=== PATIENT | male | born 1970 | race African-American/Black ===

== ENCOUNTER 2019-12-06 12:06 | IRF | payer MEDICARE, MEDICAID, SELFPAY ==
--- NOTE | ~2019-12-06 | XR_ITS ---
EXAMINATION: XR chest 1V portable EXAM DATE: 12/23/2019 18:42 INDICATION: Lightheadedness, dizziness. TECHNIQUE: Portable AP frontal chest x-ray was obtained. There is no prior study for comparison. FINDINGS: The lungs are clear. There are no pleural effusions. Cardiac silhouette is prominent but magnified on this AP technique. There is no pneumothorax suspected. The bones and soft tissues are unremarkable. IMPRESSION: No acute cardiopulmonary findings. Reviewed, dictated and finalized at location A.
--- NOTE | ~2019-12-06 | NM_ITS ---
EXAMINATION: NM pulmonary perfusion DATE: 12/24/2019 12:07 INDICATION: Shortness of breath. TECHNIQUE: 4.4 mCi Tc-99m MAA was administered intravenously for perfusion images. Scintigraphic sebastian ges of the chest were obtained. COMPARISON: Chest single view 12/23/2019 FINDINGS: Perfusion images show no defects. ] IMPRESSION: 1. Normal lung perfusion. Reviewed, dictated and finalized at location A. IMPRESSION: 1. Normal lung perfusion.
--- NOTE | 2019-12-06 12:25 | PC.NURSE ---
This patient, Issac Perea, was admitted to [facility] Room 220-01. Patient/family oriented to hospital policies and general routines including ID bracelet, bed and alarms, visiting hours, pain management, procedures, bathroom and other care routines, personal items, smoking policy, room service/diet, and visiting hours. Valuables list has been completed. Information on how to activate the Rapid Response Team has been discussed. Patient/Family are encouraged to report perceived risks to care and to ask questions if they do not understand what they are told or what they should do.
[2019-12-06 12:30] VITALS: BP 131/52; PULSE 63; RESP 17; TEMP 36.4; O2SAT 97; BMI 35.2
[2019-12-06 16:14] VITALS: BMI 35.2
[2019-12-06 17:34] LABS: Glucose Point of Care 216 (65-105)
[2019-12-06] MEDS: INSULIN ASPART (*BKC) 100 UNITS/ML SUB-Q (17:51)
[2019-12-06 17:54] VITALS: PULSE 63
[2019-12-06] MEDS: carvediloL 12.5 MG TABLET PO (17:54)
[2019-12-06] MEDS: SEVELAMER CARBONATE 800 MG TABLET PO (17:55)
[2019-12-06] MEDS: hydrALAZINE HCL 25 MG TABLET PO ×2 (17:56→21:24)
[2019-12-06] MEDS: TRAZODONE HCL 50 MG TABLET PO (21:24)
[2019-12-06] MEDS: INSULIN GLARGINE (*BKC) 100 UNITS/ML 20 UNITS SUB-Q (21:24)
[2019-12-06 21:45] LABS: Glucose Point of Care 207 (65-105)
[2019-12-06 21:50] VITALS: BP 119/63; PULSE 72; RESP 16; TEMP 36.7; O2SAT 95
[2019-12-07] VITALS (25 sets, daily range): BP systolic 123–158; BP diastolic 52–70; PULSE 59–69; RESP 16–18; TEMP 36.3–37; O2SAT 96–98
[2019-12-07] MEDS: TRAMADOL HCL 50 MG TABLET PO (04:31)
[2019-12-07 04:34] LABS: Basophils Absolute Auto 0.1 K/mm3 (0.0-0.1); Basophils Percent Auto 0.6 % (0.2-1.2); Eosinophils Absolute Auto 0.1 K/mm3 (0-0.3); Eosinophils Percent Auto 1.2 % (0-4.4); Hematocrit 25.5 % (42.0-52.0); Hemoglobin 7.7 g/dL (14.0-18.0); Immature Granulocyte Absolute 0.04 K/mm3 (0.00-0.031); Immature Granulocyte Percent A 0.4 % (0-0.5); Lymphocytes Absolute Auto 1.21 K/mm3 (0.9-3.2); Lymphocytes Percent Auto 13.4 % (18.3-44.2); Mean Corpuscular HGB Conc 30.2 g/dl (32-36); Mean Corpuscular Hemoglobin 26.5 pg (26-34); Mean Corpuscular Volume 87.6 fl (80-100); Mean Platelet Volume 8.4 fl (7.4-10.4); Monocytes Absolute Auto 0.9 K/mm3 (0.1-0.6); Monocytes Percent Auto 9.9 % (2.6-8.5); Neutrophils Absolute Auto 6.7 K/mm3 (1.3-6.7); Neutrophils Percent Auto 74.5 % (45.5-73.1); Platelet Count Result 425 k/mm3 (150-375); Red Blood Count 2.91 M/mm3 (4.6-6.20); Red Cell Distribution Width 16.4 % (11.5-14.5); White Blood Count 9.1 K/mm3 (4.5-10.0)
[2019-12-07 04:44] LABS: Hemoglobin A1C 9.7 % (<5.7)
[2019-12-07 04:51] LABS: Blood Urea Nitrogen 27 mg/dL (9-20); Calcium 8.2 mg/dL (8.4-10.2); Carbon Dioxide 30 mmol/L (22-30); Chloride 93 mmol/L (98-107); Estimated CRCL calculation 15 ml/min; Estimated Glomerular Filt Rate 11; Glucose 159 mg/dL (75-110); Potassium 4.8 mmol/L (3.4-5.0); Sodium 130 mmol/L (137-145)
[2019-12-07] MEDS: hydrALAZINE HCL 25 MG TABLET PO ×3 (05:45→20:12)
[2019-12-07 06:49] LABS: Glucose Point of Care 151 (65-105)
[2019-12-07] MEDS: ATORVASTATIN 40 MG TABLET PO (10:34)
[2019-12-07] MEDS: DULOXETINE HCL 30 MG CAPSULE.DR PO (10:34)
[2019-12-07] MEDS: AMLODIPINE BESYLATE 5 MG TABLET 10 MG PO (10:35)
[2019-12-07] MEDS: MULTIVITAMINS /C LUTEIN (CENTRUM SILVER) TABLET *BKC 1 TAB PO (10:35)
[2019-12-07] MEDS: SEVELAMER CARBONATE 800 MG TABLET PO ×3 (10:35→20:11)
[2019-12-07] MEDS: carvediloL 12.5 MG TABLET PO ×2 (10:35→20:11)
[2019-12-07] MEDS: ASPIRIN 81 MG ENTERIC TABLET PO (10:35)
[2019-12-07] MEDS: INSULIN ASPART (*BKC) 100 UNITS/ML SUB-Q ×2 (10:36→12:19)
[2019-12-07] MEDS: FLUTICASONE PROPIONATE 0.05% NA SPR 16 GM BTL (*BKC) 2 SPRAY NASAL (10:36)
--- NOTE | 2019-12-07 10:44 | PM.CNNEP ---
Assessment and Plan Assessment and plan (1) End stage renal disease: Code(s): N18.6 - End stage renal disease Status: Acute Assessment and Plan: The patient has end-stage renal disease. He has been on dialysis for a year and a half. He never had a transplant. He has never been on peritoneal dialysis. His dialysis has been going pretty smoothly. He generally has about 2L on. He has been eating well. We will dialyze him today. I will take 2L off. We will use a 3K bath. (2) Hypertension: Code(s): I10 - Essential (primary) hypertension Status: Acute Assessment and Plan: Blood pressure is under good control. He is on amlodipine carvedilol and clonidine. (3) Renal osteodystrophy: Code(s): N25.0 - Renal osteodystrophy Status: Acute Assessment and Plan: We will check a phosphorus level next week he is on sevelamer now Since he is on hospital food he may not need the binder but we will assess this going forward (4) Erythropoietin deficiency anemia: Code(s): D63.1 - Anemia in chronic kidney disease Status: Acute Assessment and Plan: The patient has a hemoglobin of only 7.7. This is partially due to chronic kidney disease but also due to inflammation from his infection and also possibly blood loss from surgery. He is no longer on antibiotics. We will check iron levels to see where we are with that. (5) History of left below knee amputation: Code(s): Z89.512 - Acquired absence of left leg below knee Status: Acute Assessment and Plan: The patient had a ckrfe-fke-anrg amputation recently. He is getting local wound care. History of Present Illness Reason for Consult Consult date: 12/07/19 Reason for consult: end stage renal disease Chief Complaint Chief complaint: Left BKA History of Present Illness Narrative: Issac is a very pleasant 49-year-old gentleman who has multiple medical problems including end-stage renal disease, diabetes, hypertension, peripheral vascular disease, status post left drwmr-lxh-lqhi amputation due to a foot ulcer, anemia of chronic kidney disease, renal osteodystrophy, hyperlipidemia, history of a TIA. The patient has trouble started with a foot ulcer on the left foot. This is managed with local wound management and antibiotics. Unfortunately it progressed over the next 2 weeks and eventually ended up needing an above the knee amputation. The wound dehisced and so he has a wound VAC. He was transferred to rehab for strengthening, wound care, dialysis. The patient feels okay today. He has been eating okay. He feels like he has about 2L on. No chest pain or shortness of breath. A little bit of swelling. No skin rash. The patient has diabetes. He has had this for about 20 years. He does have eye disease from this, he has had bleeding in his eyes.. His sugars have been fairly well controlled. The patient has hypertension. He has had this for about 15 years. He has never had a stroke or heart attack but did have a TIA. 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 He does not know the etiology. Past history as above Social history he does not smoke and never did. He does not drink alcohol. Allergies: Vancomycin. Review of Systems Constitutional: Constitutional: Reports no additional constitutional complaints Eyes: Eyes: Reports no additional eye complaints ENT: Reports system reviewed and no additional complaints, except as documented Cardiovascular: Cardiovascular: Reports no additional cardiovascular complaints Respiratory: Respiratory: Reports no additional respiratory complaints Gastrointestinal: Gastrointestinal: Reports no additional gastrointestinal complaints Genitourinary: Genitourinary: Reports no additional male genitourinary complaints Musculoskeletal: Musculoskeletal: Reports no additional musculoskeletal complaints Integu
[2019-12-07 11:21] LABS: Immature Reticulocyte Fraction 22.1 % (3.0-15.9); Reticulocyte Hemoglobin Conten 23.2 pg (28.2-35.7); Reticulocyte Percent 1.75 % (0.7-4.3); Reticulocytes Absolute 0.05 B/L (32.2-175.7)
[2019-12-07 12:03] LABS: Glucose Point of Care 104 (65-105)
[2019-12-07 13:12] LABS: Iron 42 ug/dL (49-181)
[2019-12-07 13:21] LABS: Percent Iron Saturation 29 % (20-50)
--- NOTE | 2019-12-07 14:09 | REHAB_ITS ---
DATE OF SERVICE: 12/06/2019 PATIENT'S PRIMARY REHAB IMPAIRMENT CATEGORY: Amputation of lower extremity with etiological diagnosis of severe peripheral vascular disease with osteomyelitis. He was seen [id number] on 12/08/2019 at 11:00 a.m. HISTORY OF PRESENT ILLNESS: A 49-year-old right-handed male with ongoing history of: 1. Diabetes mellitus. 2. Peripheral vascular disease. 3. Hypertension. 4. End-stage renal disease for which he is on hemodialysis. Presented to Dr. Bright office on 11/25/2019 for further evaluation of circulation problem and extent of infection to receive the further IV antibiotics. His foot ulcer was being treated with oral antibiotic, but ulceration was rapidly deteriorating and he was developing gangrenous tissue. Dr. Bright performed a debridement in the office and recommended the patient to go to the emergency room where radiological investigation documented osteomyelitis of the base of the left fifth metatarsal bone for which he was placed on cefepime and clindamycin. CTA revealed aorta with bilateral iliofemoral runoff. He had previous amputation of all the toes on the left foot in 2011, and second and third toe of the right foot in 2012. Several physicians were consulted including Infectious Disease, Podiatry, Nephrology, Cardiology. Infectious Disease personnel changed the antibiotic to ceftaroline and added metronidazole. Groover Runner recommended peripheral vascular consultation for staging of the amputation as well as I and D with the recommendation made for General Surgery for possible distal below-knee amputation. Wet-to-dry Betadine dressings were initiated. Nephrologists were consulted for the patient was on hemodialysis on Monday, , and Monday, and was managing hemodialysis care. Cardiologists were also consulted for peripheral angiography to attempt to restore better blood flow to the left foot. Angioplasty was performed on 11/27/2019, but on 11/28/2019, cosmetic sales performed an I and D of the left foot. At the end of the procedure, Dr. Batista determined that it was highly unlikely healing would occur, so he packed the area and contacted Dr. Josue to schedule a below-knee amputation. the general surgeon agreed with and scheduled the patient for left below-knee amputation. On 11/14/2019, the patient underwent the procedure with wound VAC placement. Postoperatively, he developed severe pain, became anemic requiring transfusion, also developed hypertension, hyperglycemia, hyperkalemia, and hyponatremia. He was nonweightbearing to left lower extremity, had a Prevena wound VAC to the left lower extremity to be removed on 12/09/2019, and is to follow up in 3 weeks for staple removal. If stump is healed at that time, they will arrange for prosthetics consultation and stump waitstaff captain. On 12/02/2019, he underwent a CT angiogram and stent placement in his left popliteal artery with Dr. Sorto and the patient was to continue on aspirin. He will require 5-7 days of oral antibiotics. He will not be placed on subcutaneous anticoagulation. He has a followup appointment scheduled with Dr. Sorto on 12/31/2019 at a.m. The patient has not traveled outside the [place] or had contact with someone who was ill that has traveled outside the [place] in the past 21 days. The patient has not traveled to an area of the [place] that is experiencing known transmission of the [place] virus and has not had close personal contact with anyone that has. The patient does not have a fever and is not experiencing any lower respiratory illness symptoms. Therapy was initiated at the Acute Care Facility and patient was transferred to us from [facility] on 12/05/2019. SURGERY OR FALLS: The patient has had major surgery in the last 100 days prior to admission as mentioned above. He has
[2019-12-07] MEDS: HEPARIN SODIUM 1,000 UNITS/ML VIAL 1000 UNITS IV PUSH (15:21)
[2019-12-07] MEDS: HEPARIN SODIUM 1,000 UNITS/ML VIAL 500 UNITS IV PUSH ×2 (15:24→16:24)
[2019-12-07] MEDS: EPOETIN ALFA 10,000 UNITS/ML VIAL 10000 UNITS IV PUSH (17:05)
[2019-12-07] MEDS: TRAZODONE HCL 50 MG TABLET PO (20:12)
[2019-12-07] MEDS: INSULIN GLARGINE (*BKC) 100 UNITS/ML 20 UNITS SUB-Q (20:14)
[2019-12-07 21:04] LABS: Glucose Point of Care 101 (65-105)
[2019-12-08 05:10] VITALS: BP 142/55; PULSE 70; RESP 18; TEMP 37.2; O2SAT 99
[2019-12-08] MEDS: hydrALAZINE HCL 25 MG TABLET PO ×3 (05:21→20:43)
[2019-12-08 06:55] LABS: Glucose Point of Care 162 (65-105)
[2019-12-08 08:00] VITALS: PULSE 70; RESP 18; O2SAT 99
[2019-12-08 09:16] VITALS: PULSE 70
[2019-12-08] MEDS: ATORVASTATIN 40 MG TABLET PO (09:16)
[2019-12-08] MEDS: carvediloL 12.5 MG TABLET PO ×2 (09:16→17:28)
[2019-12-08] MEDS: AMLODIPINE BESYLATE 5 MG TABLET 10 MG PO (09:16)
[2019-12-08] MEDS: DULOXETINE HCL 30 MG CAPSULE.DR PO (09:17)
[2019-12-08] MEDS: SEVELAMER CARBONATE 800 MG TABLET PO ×3 (09:17→17:28)
[2019-12-08] MEDS: MULTIVITAMINS /C LUTEIN (CENTRUM SILVER) TABLET *BKC 1 TAB PO (09:17)
[2019-12-08] MEDS: ASPIRIN 81 MG ENTERIC TABLET PO (09:17)
[2019-12-08] MEDS: INSULIN ASPART (*BKC) 100 UNITS/ML SUB-Q ×3 (09:22→17:28)
--- NOTE | 2019-12-08 10:13 | WPDNEURORHBP ---
Subjective Date/time seen: 12/08/19 10:13 S/P LBKA with severe peripheral vascular disease,DM and ESRD Exam Const: General: cooperative, comfortable and no acute distress Nutritional Appearance: average body habitus Orientation/consciousness: patient oriented x3 Eyes: General: appearance normal, both eyes and all related structures Neck: Neck: full ROM Resp: Auscultation: clear to auscultation bilaterally Cardio: Rate: regular rate GI: Auscultation: normal bowel sounds Skin: General skin exam: no rashes or lesions noted Neuro: General: patient oriented x3 and moves all extremities Cranial nerves: Yes CN's II-XII intact bilaterally, Yes Equal, round and reactive pupils present, Yes Nystagmus not present, Yes Normal facial strength present, Yes Midline tongue present, Yes Symmetric palate elevation present and Yes Ability to bilaterally rotate head present Cognition (Neuro): normal cognition Speech: normal speech Gait exam (Neuro): Unable to assess gait Deep tendon reflexes (DTR's): Right triceps reflex intensity grade: 1+, Left triceps reflex intensity grade: 1+, Rt Biceps (C5, C6): 1+, Left biceps reflex intensity grade: 1+, Right brachioradialis reflex intensity grade: 1+, Left brachioradialis reflex intensity grade: 1+, Right patellar reflex intensity grade: 1+ and Right ankle reflex intensity grade: 0 Plantar Reflex Responses: downgoing: right Psych: Appearance: grossly normal Speech and movement: Normal speech and movement present Affect: normal affect Attitude: cooperative Thought process: Normal thought process present Thought content: Yes Normal thought content present Insight: Good insight present (Psych) Judgement: Good judgement present (Psych) Objective Data Vital Signs Vital Signs: Vital Signs - 24 hr 12/07/19 10:35 12/07/19 14:00 12/07/19 15:00 Temperature 36.6 C Pulse Rate 65 69 60 Respiratory Rate 18 Blood Pressure 130/52 L 136/66 Pulse Oximetry 96 12/07/19 15:10 12/07/19 15:24 12/07/19 15:45 Temperature 36.3 C L Pulse Rate 61 59 L 60 Respiratory Rate 16 Blood Pressure 134/68 126/64 133/63 Pulse Oximetry 12/07/19 16:00 12/07/19 16:15 12/07/19 16:30 Temperature Pulse Rate 60 63 60 Respiratory Rate Blood Pressure 132/70 135/62 123/62 Pulse Oximetry 12/07/19 16:45 12/07/19 17:00 12/07/19 17:15 Temperature Pulse Rate 63 64 64 Respiratory Rate Blood Pressure 138/68 137/65 140/65 Pulse Oximetry 12/07/19 17:30 12/07/19 17:45 12/07/19 18:00 Temperature Pulse Rate 64 65 65 Respiratory Rate Blood Pressure 142/64 H 148/68 H 148/68 H Pulse Oximetry 12/07/19 18:15 12/07/19 18:30 12/07/19 18:45 Temperature Pulse Rate 64 67 66 Respiratory Rate Blood Pressure 138/66 144/64 H 139/64 Pulse Oximetry 12/07/19 18:57 12/07/19 19:16 12/07/19 20:11 Temperature 36.4 C Pulse Rate 65 66 66 Respiratory Rate 16 Blood Pressure 147/67 H 147/65 H Pulse Oximetry 12/07/19 20:20 12/08/19 05:10 12/08/19 09:16 Temperature 36.6 C 37.2 C Pulse Rate 61 70 70 Respiratory Rate 18 18 Blood Pressure 158/57 H 142/55 H Pulse Oximetry 98 99 Intake/Output Intake/Output: Intake & Output 12/05/19 12/06/19 12/07/19 12/08/19 23:59 23:59 23:59 23:59 Intake Total 480 600 Output Total 2000 Balance 480 -1400 Meds/Results Medications: Active Medications Generic Name Dose Route Start Last Admin Trade Name Keithq PRN Reason Stop Dose Admin Amlodipine Besylate 10 mg 12/07/19 09:00 12/08/19 09:16 Norvasc PO 10 mg DAILY ESTEFANY Administration Aspirin 81 mg 12/07/19 09:00 12/08/19 09:17 Aspirin Ec PO 81 mg DAILY ESTEFANY Administration Atorvastatin Calcium 40 mg 12/07/19 09:00 12/08/19 09:16 Lipitor PO 40 mg DAILY ESTEFANY Administration Carvedilol 12.5 mg 12/06/19 17:00 12/08/19 09:16 Coreg PO 12.5 mg BID ESTEFANY Administration Clonidine HCl 1 patch 12/09/19 09:00 Catapres-
[2019-12-08 11:57] LABS: Glucose Point of Care 123 (65-105)
[2019-12-08 14:00] VITALS: BP 130/58; PULSE 70; RESP 20; TEMP 36.5; O2SAT 97
[2019-12-08 16:58] LABS: Glucose Point of Care 170 (65-105)
[2019-12-08 17:28] VITALS: PULSE 70
--- NOTE | 2019-12-08 19:16 | PC.NURSE ---
DIALYSIS SHUNT IN LEFT FOREARM, USED FOR DIALYSIS. NO PROBLEMS REPORTED FROM DIALYSIS NURSE.
[2019-12-08 20:33] LABS: Glucose Point of Care 230 (65-105)
[2019-12-08] MEDS: INSULIN GLARGINE (*BKC) 100 UNITS/ML 20 UNITS SUB-Q (20:36)
[2019-12-08] MEDS: TRAZODONE HCL 50 MG TABLET PO (20:46)
[2019-12-08 22:00] VITALS: BP 172/60; PULSE 72; RESP 18; TEMP 36.8; O2SAT 97
[2019-12-09] MEDS: TRAMADOL HCL 50 MG TABLET 100 MG PO (03:52)
[2019-12-09 05:26] LABS: Albumin Level 3.2 g/dL (3.5-5.1); Blood Urea Nitrogen 30 mg/dL (9-20); Calcium 8.2 mg/dL (8.4-10.2); Carbon Dioxide 27 mmol/L (22-30); Chloride 95 mmol/L (98-107); Estimated CRCL calculation 16 ml/min; Estimated Glomerular Filt Rate 12; Glucose 183 mg/dL (75-110); Phosphorus 3.6 mg/dL (2.5-4.5); Potassium 5.2 mmol/L (3.4-5.0); Sodium 130 mmol/L (137-145)
[2019-12-09] MEDS: hydrALAZINE HCL 25 MG TABLET PO ×3 (05:51→20:41)
[2019-12-09 06:00] VITALS: BP 148/60; PULSE 63; RESP 18; TEMP 36.4; O2SAT 99
[2019-12-09 07:02] LABS: Glucose Point of Care 165 (65-105)
[2019-12-09] MEDS: AMLODIPINE BESYLATE 5 MG TABLET 10 MG PO (09:41)
[2019-12-09 09:42] VITALS: PULSE 63
[2019-12-09] MEDS: SEVELAMER CARBONATE 800 MG TABLET PO ×3 (09:42→17:45)
[2019-12-09] MEDS: carvediloL 12.5 MG TABLET PO ×2 (09:42→17:45)
[2019-12-09] MEDS: ATORVASTATIN 40 MG TABLET PO (09:42)
[2019-12-09] MEDS: ASPIRIN 81 MG ENTERIC TABLET PO (09:42)
[2019-12-09] MEDS: FLUTICASONE PROPIONATE 0.05% NA SPR 16 GM BTL (*BKC) 2 SPRAY NASAL (09:44)
[2019-12-09] MEDS: DULOXETINE HCL 30 MG CAPSULE.DR PO (09:44)
[2019-12-09] MEDS: MULTIVITAMINS /C LUTEIN (CENTRUM SILVER) TABLET *BKC 1 TAB PO (09:45)
[2019-12-09] MEDS: INSULIN ASPART (*BKC) 100 UNITS/ML SUB-Q ×3 (09:46→17:48)
[2019-12-09 11:54] VITALS: BMI 35.6
[2019-12-09 11:56] LABS: Glucose Point of Care 108 (65-105)
--- NOTE | 2019-12-09 13:23 | RPD ---
INDIVIDUALIZED PLAN OF CARE FOR Issac Perea Brief Synthesis of Pre-Admission Screen, Post-Admission Evaluation and Therapy Evaluations: The patient presents to rehab with severe peripheral vascular disease with osteomyelitis. Comorbidities include hypertension, acute postoperative pain, acute blood loss anemia requiring transfusion, hyponatremia, hyperkalemia, end-stage renal disease on hemodialysis, peripheral vascular disease, diabetes mellitus with hyperglycemia. The patient requires physician services for medical oversight, management of post-op complications in the setting of present comorbidities, management of diabetes mellitus diagnosis, and pain management. Post-op complications have included acute blood loss anemia requiring transfusion, uncontrolled hypertension, hyperkalemia, hyponatremia, and hyperglycemia. The patient requires nursing services for anticoagulation therapy, diabetes training, DVT prophylactics, infection protection, medication management and education, pressure relief, wound vac management, and wound care Deficits include:ADLs, Balance, Endurance, Family Training/Education, Mobility, Pain Management, ROM, Safety, Strength,Transfers Court Messenger/Case Management for: Discharge Planning and Patient/Family Counseling Physical Therapy: 5 days per week for 90 minutes. Treatments may include: Therapeutic Exercise, Gait Training, Neuromuscular Re-education, Transfer Training, Community Reintegration, Bed Mobility, Patient/Family Education, Wheelchair Mobility Group Therapy/Concurrent Therapy Rationales: -Improve attention span during functional activities in a distracted environment. -Enhance problem solving and/or adequate judgment skills during functional activities in a distracted environment. -Promote increased safety awareness in a distracted environment to reduce fall risk with functional tasks, transfers, and ambulation to allow a more safe, self-sufficient return to the home environment. -Improve dynamic balance skills to promote safety and independence with functional activities in a distracted environment for maximum gain. Occupational Therapy: 5 days per week for 90 minutes. Treatments may include: Therapeutic Exercise, Therapeutic Activity, Cognitive Training, Self-Care Transfer Training, Community Reintegration, Home Management, Patient/Family Education, Wheelchair Mobility Training, Energy Conservation Training Group Therapy/Concurrent Therapy Rationales: -Allow therapist to observe and teach generalization and carry-over of skills learned in individual therapy. -Enhance problem solving and sequencing skills during therapeutic activities in a distracted environment. -Promote increased safety awareness in a realistic setting to reduce fall risk with functional tasks due to visual and verbal distractions. -Increase functional level with ADLs, ADL transfers and use of adaptive equipment through therapeutic activities with others while promoting safety to allow a more safe, self-sufficient return home. Medical Prognosis: Good Anticipated Length of Stay: 12 days Rehab Goals: Eating Goal: 06-Independent Oral Hygiene Goal: 06-Independent Toileting Hygiene Goal: 03-Partial/Moderate Assistance Shower/Bathe Self Goal: 05-Setup or Clean Up Assistance Upper Body Dressing Goal: 05-Setup or Clean Up Assistance Lower Body Dressing Goal: 03-Partial/Moderate Assistance Putting On/Taking Off Footwear Goal: 06-Independent Rolling Left and Right Goal: 06-Independent Sit to Lying Goal: 06-Independent Lying to Sitting on Side of Bed Goal: 06-Independent Sit to Stand Goal: 04-Supervision or Touching Assistance Chair/Jmi-vw-Thyhu Transfer Goal: 06-Independent Toilet Transfer Goal: 03-Partial/Moderate Assistance Car Transfer Goal: 03-Partial/Moderate Assistance Walk 10' Goal: 03-Partial/Moderate Assistance Walk 50' with Two Turns Goal: 88-Not Attempted Due to Medical Condition/Safety Concerns Walk 150' Goal: 88-Not Attempted Due to
[2019-12-09 14:00] VITALS: BP 134/52; PULSE 63; RESP 18; TEMP 36.2; O2SAT 99
[2019-12-09 17:06] LABS: Glucose Point of Care 121 (65-105)
[2019-12-09 17:45] VITALS: PULSE 63
[2019-12-09 20:00] VITALS: PULSE 66; RESP 16; O2SAT 95
[2019-12-09] MEDS: INSULIN GLARGINE (*BKC) 100 UNITS/ML 20 UNITS SUB-Q (20:37)
[2019-12-09] MEDS: TRAZODONE HCL 50 MG TABLET PO (20:41)
[2019-12-09 20:59] LABS: Glucose Point of Care 133 (65-105)
[2019-12-09 22:00] VITALS: BP 138/58; PULSE 66; RESP 16; TEMP 36.3; O2SAT 95
[2019-12-10] VITALS (22 sets, daily range): BP systolic 125–198; BP diastolic 55–69; PULSE 64–75; RESP 16–20; TEMP 35.8–37; O2SAT 95–99
[2019-12-10] MEDS: hydrALAZINE HCL 25 MG TABLET PO ×3 (05:54→21:22)
[2019-12-10 07:00] LABS: Glucose Point of Care 120 (65-105)
[2019-12-10] MEDS: AMLODIPINE BESYLATE 5 MG TABLET 10 MG PO (08:24)
[2019-12-10] MEDS: SEVELAMER CARBONATE 800 MG TABLET PO ×3 (08:24→21:22)
[2019-12-10] MEDS: FLUTICASONE PROPIONATE 0.05% NA SPR 16 GM BTL (*BKC) 2 SPRAY NASAL (08:25)
[2019-12-10] MEDS: carvediloL 12.5 MG TABLET PO ×2 (08:25→21:22)
[2019-12-10] MEDS: ASPIRIN 81 MG ENTERIC TABLET PO (08:25)
[2019-12-10] MEDS: DULOXETINE HCL 30 MG CAPSULE.DR PO (08:25)
[2019-12-10] MEDS: ATORVASTATIN 40 MG TABLET PO (08:25)
[2019-12-10] MEDS: MULTIVITAMINS /C LUTEIN (CENTRUM SILVER) TABLET *BKC 1 TAB PO (08:25)
[2019-12-10] MEDS: polyethylene glycoL 3350 17 GM POWD.PACK PO (08:26)
[2019-12-10] MEDS: INSULIN ASPART (*BKC) 100 UNITS/ML SUB-Q (08:27)
--- NOTE | 2019-12-10 08:35 | PCPTNOTE ---
Addendum entered by Faye Nunez PTA 12/10/19 11:52: Add bilateral swing away arm rests on wheelchair. Original Note: Faye Nunez PTA completed an inpatient rehab wheelchair evaluation on Issac Perea on 12/10/2019. The patient is unable to safely and independently ambulate household distances due to their current impairments. Their diagnosis is Left BKA and their impairments include decreased strength, decreased endurance, decreased range of motion, decreased balance and lower extremity weakness. Issac's weight bearing status is weight-bearing as tolerated on right lower leg and non weight bearing left lower leg. The patient demonstrates significant functional mobility limitations that impair their ability to participate in mobility-related activities of daily living (MRADLs), including toileting, feeding, dressing, grooming, and bathing in the customary locations in the home. These limitations cannot be sufficiently resolved by the use of an appropriately fitted cane or walker. It is recommended that the patient utilize a wheelchair for functional mobility within the home in order to facilitate optimal safety, independence and participation in all MRADL's and adequately access their home environment on a regular basis. The patient's home provides adequate access between rooms, maneuvering space, and surfaces to accommodate the recommended wheelchair. The use of a wheelchair for functional mobility is strongly recommended and the patient is receptive to using the wheelchair. The use of this wheelchair will significantly improve the patient's ability to participate in MRADLS and the patient will use it on a regular basis in the home. This will facilitate optimal safety, independence, and participation. The patient has demonstrated sufficient physical and mental capabilities needed to safely propel a manual wheelchair that is provided in the home during a typical day. Recommended Wheelchair Frame: standard Recommended Wheelchair Size: 20x22 Due to patient's anatomical hip width and leg length patient will require a 20x22 wheelchair size. Recommended Wheelchair Cushion:standard Wheelchair Leg Recommendations: Swing away elevating leg rest on right lower extremity and residual leg rest on left leg due to below knee amputation. - Elevating legrests are recommended because the patient has significant edema of the lower extremities that requires an elevating legrest. - Anti-tippers are recommended due to patient demonstrating increased risk for falls. They would benefit from anti-tippers with added safety and stabilization. Faye Nunez PATTERN GRADER CUTTER 12/10/2019 Evaluating Therapist Date I agree with and certify that the above recommendation is medically necessary. Referring Physician Date I agree with and certify that the above recommendation is medically necessary. Referring Physician Date
--- NOTE | 2019-12-10 11:44 | PM.PNNEP ---
Progress Note: A&P Assessment and Plan (1) End stage renal disease: Code(s): N18.6 - End stage renal disease Status: Acute Assessment and Plan: HD today and continue T/T/S schedule follow electrolytes, volume status, and clearance (2) Hypertension: Code(s): I10 - Essential (primary) hypertension Status: Acute Assessment and Plan: reasonable control follow trend of hemodynamics (3) Renal osteodystrophy: Code(s): N25.0 - Renal osteodystrophy Status: Acute Assessment and Plan: follow calcium and phosphorus on binders (4) Erythropoietin deficiency anemia: Code(s): D63.1 - Anemia in chronic kidney disease Status: Acute Assessment and Plan: Epogen with HD adequate iron stores by anemia studies follow H/H (5) History of left below knee amputation: Code(s): Z89.512 - Acquired absence of left leg below knee Status: Acute Assessment and Plan: local wound care PT/OT/rehab Will continue to follow. Subjective Date/time seen: 12/10/19 11:44 No apparent distress voiced at the time of my visit; eating lunch and has no complaints; working with PT/OT as tolerated; due for dialysis this afternoon. Exam Narrative: Exam Narrative: General: WD/WN male in NAD Heart: normal S1 and S2; no rub Lungs: clear to auscultation Abdomen: soft, nontender, nondistended, positive bowel sounds Extremities: no cyanosis or clubbing; no edema Skin: warm and dry Objective Data Vital Signs Vital Signs: Vital Signs Temp Pulse Resp BP Pulse Ox 12/10/19 08:25 66 12/10/19 08:00 66 16 97 12/10/19 06:00 36.6 C 66 16 135/58 L 97 12/09/19 22:00 36.3 C L 66 16 138/58 L 95 12/09/19 20:00 66 16 95 12/09/19 17:45 63 12/09/19 14:00 36.2 C L 63 18 134/52 L 99 Intake/Output Intake/Output: Intake & Output 12/07/19 12/08/19 12/09/19 12/10/19 23:59 23:59 23:59 23:59 Intake Total 600 600 720 240 Output Total 1999 Balance -1400 600 720 240 Meds/Results Medications: Active Medications Generic Name Dose Route Start Last Admin Trade Name Freq PRN Reason Stop Dose Admin Amlodipine Besylate 10 mg 12/07/19 09:00 12/10/19 08:24 Norvasc PO 10 mg DAILY ESTEFANY Administration Aspirin 81 mg 12/07/19 09:00 12/10/19 08:25 Aspirin Ec PO 81 mg DAILY ESTEFANY Administration Atorvastatin Calcium 40 mg 12/07/19 09:00 12/10/19 08:25 Lipitor PO 40 mg DAILY ESTEFANY Administration Carvedilol 12.5 mg 12/06/19 17:00 12/10/19 08:25 Coreg PO 12.5 mg BID ESTEFANY Administration Clonidine HCl 1 patch 12/09/19 09:00 12/09/19 09:44 Catapres-Tts 3 TRANSDERM 1 patch Mo@0900 ESTEFANY Administration Dextrose 12.5 gm 12/06/19 13:12 Dextrose 50% Syringe IV PUSH PRN PRN Hypoglycemia Protocol Duloxetine HCl 30 mg 12/07/19 09:00 12/10/19 08:25 Cymbalta PO 30 mg DAILY ESTEFANY Administration Epoetin Daniel 10,000 units 12/07/19 13:00 12/07/19 17:05 Epogen IV PUSH 10,000 units TUTHSA ESTEFANY Administration Fluticasone Propionate 2 spray 12/07/19 09:00 12/10/19 08:25 Flonase 0.05% Nasal [place] NASAL 2 spray DAILY ESTEFANY Administration Glucagon 1 mg 12/06/19 13:12 Glucagon For Inj IM PRN PRN Hypoglycemia Protocol Glucose 15 gm 12/06/19 13:12 Glutose 15 PO PRN PRN Hypoglycemia Protocol Hydralazine HCl 25 mg 12/06/19 14:00 12/10/19 05:54 Apresoline Tablet PO 25 mg Q8HR ESTEFANY Administration Dextrose 1,000 mls @ 100 mls/hr 12/06/19 13:12 Dextrose 5% 1,000 Ml IVPB PRN PRN Hypoglycemia Protocol Albumin Human 50 mls @ 999 mls/hr 12/10/19 07:33 Albutein IVPB 01/09/20 07:34 Q10M PRN HYPOTENSION Insulin Aspart 5 units 12/06/19 17:00 12/10/19 08:27 Novolog SUB-Q 5 units TIDWM ESTEFANY Administration Insulin Glargine 20 units 12/06/19 21:00 12/08
[2019-12-10 11:49] LABS: Glucose Point of Care 100 (65-105)
--- NOTE | 2019-12-10 14:21 | WPDNEURORHBP ---
Subjective Date/time seen: 12/10/19 14:21 Interval history: this 49-year-old the gentleman is here after having had a left BKA due to significant peripheral vascular disease the details are available in the initial H and P. 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 and has evidence of retinopathy along with peripheral neuropathy he denies any headache nausea vomiting chest pain shortness of breath fever chills or sore throat he is receiving dialysis on Tuesdays and Saturdays Patient has been seen by the nephrology at today and the going to follow him during the dialysis time Review of Systems Review of Systems: All systems reviewed & are unremarkable except as noted in HPI and below Functional Status Ambulation Ability Ambulation Assistive Devices: Parallel Bars Exam Const: General: comfortable and no acute distress HENMT: General nose exam: Normal nares present Mouth: Yes moist mucous membranes Eyes: General: appearance normal, both eyes and all related structures Other: evidence of diabetic retinopathy blind in right eye Neck: Neck: supple and no JVD Resp: Effort & Inspection: normal respiratory effort Auscultation: clear to auscultation bilaterally Cardio: Rate: regular rate Rhythm: regular rhythm GI: GI Palp: Yes Soft to palpation Auscultation: normal bowel sounds Skin: General skin exam: normal color and no rashes or lesions noted Neuro: Other: patient has normal speech and language function normal cranial examination apart from evidence of retinopathy and significant evidence of peripheral neuropathy and also peripheral vascular disease with left BKA Extrem: Other: left BKA stable Psych: Mental Status: mental status grossly normal Objective Data Vital Signs Vital Signs: Vital Signs - 24 hr 12/09/19 17:45 12/09/19 20:00 12/09/19 22:00 Temperature 36.3 C L Pulse Rate 63 66 66 Respiratory Rate 16 16 Blood Pressure 138/58 L Pulse Oximetry 95 95 12/10/19 06:00 12/10/19 08:00 12/10/19 08:25 Temperature 36.6 C Pulse Rate 66 66 66 Respiratory Rate 16 16 Blood Pressure 135/58 L Pulse Oximetry 97 97 Intake/Output Intake/Output: Intake & Output 12/07/19 12/08/19 12/09/19 12/10/19 23:59 23:59 23:59 23:59 Intake Total 600 600 720 240 Output Total 1999 Balance -1400 600 720 240 Meds/Results Medications: Active Medications Generic Name Dose Route Start Last Admin Trade Name Freq PRN Reason Stop Dose Admin Amlodipine Besylate 10 mg 12/07/19 09:00 12/10/19 08:24 Norvasc PO 10 mg DAILY ESTEFANY Administration Aspirin 81 mg 12/07/19 09:00 12/10/19 08:25 Aspirin Ec PO 81 mg DAILY ESTEFANY Administration Atorvastatin Calcium 40 mg 12/07/19 09:00 12/10/19 08:25 Lipitor PO 40 mg DAILY ESTEFANY Administration Carvedilol 12.5 mg 12/06/19 17:00 12/10/19 08:25 Coreg PO 12.5 mg BID ESTEFANY Administration Clonidine HCl 1 patch 12/09/19 09:00 12/09/19 09:44 Catapres-Tts 3 TRANSDERM 1 patch Mo@0900 ESTEFANY Administration Dextrose 12.5 gm 12/06/19 13:12 Dextrose 50% Syringe IV PUSH PRN PRN Hypoglycemia Protocol Duloxetine HCl 30 mg 12/07/19 09:00 12/10/19 08:25 Cymbalta PO 30 mg DAILY ESTEFANY Administration Epoetin Daniel 10,000 units 12/07/19 13:00 12/07/19 17:05 Epogen IV PUSH 10,000 units TUTHSA ESTEFANY Administration Fluticasone Propionate 2 spray 12/07/19 09:00 12/10/19 08:25 Flonase 0.05% Nasal [place] NASAL 2 spray DAILY ESTEFANY Administration Glucagon 1 mg 12/06/19 13:12 Glucagon For Inj IM PRN PRN Hypoglycemia Protocol Glucose 15 gm 12/06/19 13:12 Glutose 15 PO PRN PRN Hypoglycemia Protocol Hydralazine HCl 25 mg 12/06/19 14:00 12/10/19 13:34 Apresoline Tablet PO 25 mg Q8HR ESTEFANY Administration Dextrose 1,000 mls @ 100 mls/hr 12/06/19 13:12 Dextrose 5% 1,000 Ml IVPB PRN PRN Hypoglycemia Protocol Albumin Human 50 m
[2019-12-10] MEDS: EPOETIN ALFA 10,000 UNITS/ML VIAL 10000 UNITS IV PUSH (18:40)
[2019-12-10 21:12] LABS: Glucose Point of Care 156 (65-105)
[2019-12-10] MEDS: TRAZODONE HCL 50 MG TABLET PO (21:22)
[2019-12-10] MEDS: INSULIN GLARGINE (*BKC) 100 UNITS/ML 20 UNITS SUB-Q (21:25)
--- NOTE | 2019-12-10 22:27 | PC.NURSE ---
returned to floor from dialysis at 2000
[2019-12-11] MEDS: hydrALAZINE HCL 25 MG TABLET PO ×3 (05:59→21:00)
[2019-12-11 06:00] VITALS: BP 133/52; PULSE 52; RESP 18; TEMP 37.4; O2SAT 94
[2019-12-11 06:52] LABS: Glucose Point of Care 122 (65-105)
[2019-12-11] MEDS: ATORVASTATIN 40 MG TABLET PO (09:20)
[2019-12-11] MEDS: ASPIRIN 81 MG ENTERIC TABLET PO (09:20)
[2019-12-11] MEDS: AMLODIPINE BESYLATE 5 MG TABLET 10 MG PO (09:20)
[2019-12-11] MEDS: DULOXETINE HCL 30 MG CAPSULE.DR PO (09:20)
[2019-12-11] MEDS: SEVELAMER CARBONATE 800 MG TABLET PO ×3 (09:20→17:53)
[2019-12-11] MEDS: FLUTICASONE PROPIONATE 0.05% NA SPR 16 GM BTL (*BKC) 2 SPRAY NASAL (09:21)
[2019-12-11] MEDS: MULTIVITAMINS /C LUTEIN (CENTRUM SILVER) TABLET *BKC 1 TAB PO (09:21)
[2019-12-11] MEDS: polyethylene glycoL 3350 17 GM POWD.PACK PO (09:21)
[2019-12-11 09:22] VITALS: PULSE 72
[2019-12-11] MEDS: carvediloL 12.5 MG TABLET PO ×2 (09:22→17:52)
[2019-12-11] MEDS: INSULIN ASPART (*BKC) 100 UNITS/ML SUB-Q ×3 (09:24→17:53)
[2019-12-11 12:28] LABS: Glucose Point of Care 72 (65-105)
--- NOTE | 2019-12-11 12:44 | WPDNEURORHBP ---
Subjective Date/time seen: 12/11/19 12:44 Interval history: this 49-year-old Afro Armenian gentleman who is a diabetic with peripheral vascular disease peripheral neuropathy and diabetic retinopathy with decreased vision right more than the left is here after having had the left BKA. He tells me that he really not blind which I may have made a note on my previous follow-up visits he is able to see from the right eye but not as much as the other eye his doing fairly well his getting the dialysis Monday and Monday has been seen by the circular head saw operator does not have any new complaints particularly denies any headache nausea vomiting chest pain shortness of breath fever chills or sore throat Review of Systems Review of Systems: All systems reviewed & are unremarkable except as noted in HPI and below Functional Status Ambulation Ability Ambulation Assistive Devices: Parallel Bars Exam Const: General: comfortable and no acute distress HENMT: General nose exam: Normal nares present Mouth: Yes moist mucous membranes Eyes: General: appearance normal, both eyes and all related structures Other: evidence of bilateral retinopathy Neck: Neck: supple and no JVD Resp: Effort & Inspection: normal respiratory effort Auscultation: clear to auscultation bilaterally Cardio: Rate: regular rate GI: GI Palp: Yes Soft to palpation Auscultation: normal bowel sounds Skin: General skin exam: normal color and no rashes or lesions noted Neuro: Other: patient is awake alert will oriented to time place and person has normal speech and language function normal cranial examination does have evidence of peripheral neuropathy and peripheral vascular disease which is stable absent reflexes and sensory deficit more so than the motor deficit Extrem: Other: the left BKA looks clean Psych: Mental Status: mental status grossly normal Objective Data Vital Signs Vital Signs: Vital Signs - 24 hr 12/10/19 14:00 12/10/19 16:45 12/10/19 16:56 Temperature 35.9 C L 36.9 C Pulse Rate 64 68 65 Respiratory Rate 18 20 Blood Pressure 125/55 L 140/68 142/64 H Pulse Oximetry 95 12/10/19 17:00 12/10/19 17:15 12/10/19 17:30 Temperature Pulse Rate 66 66 65 Respiratory Rate Blood Pressure 145/65 H 144/65 H 148/68 H Pulse Oximetry 12/10/19 17:45 12/10/19 18:00 12/10/19 18:15 Temperature Pulse Rate 66 67 67 Respiratory Rate Blood Pressure 145/64 H 142/64 H 144/64 H Pulse Oximetry 12/10/19 18:30 12/10/19 18:45 12/10/19 19:00 Temperature Pulse Rate 67 68 67 Respiratory Rate Blood Pressure 146/67 H 136/69 154/64 H Pulse Oximetry 12/10/19 19:15 12/10/19 19:30 12/10/19 19:45 Temperature Pulse Rate 69 69 70 Respiratory Rate Blood Pressure 143/65 H 143/63 H 148/66 H Pulse Oximetry 12/10/19 19:56 12/10/19 20:03 12/10/19 21:22 Temperature 37.0 C Pulse Rate 70 71 72 Respiratory Rate 20 Blood Pressure 148/66 H 149/68 H Pulse Oximetry 12/10/19 22:00 12/11/19 06:00 12/11/19 09:22 Temperature 36.6 C 37.4 C Pulse Rate 75 52 L 72 Respiratory Rate 20 18 Blood Pressure 198/61 H 133/52 L Pulse Oximetry 99 94 Intake/Output Intake/Output: Intake & Output 12/08/19 12/09/19 12/10/19 12/11/19 23:59 23:59 23:59 23:59 Intake Total 600 720 600 240 Output Total 2905 Balance 600 720 -2305 240 Meds/Results Medications: Active Medications Generic Name Dose Route Start Last Admin Trade Name Freq PRN Reason Stop Dose Admin Amlodipine Besylate 10 mg 12/07/19 09:00 12/11/19 09:20 Norvasc PO 10 mg DAILY ESTEFANY Administration Aspirin 81 mg 12/07/19 09:00 12/11/19 09:20 Aspirin Ec PO 81 mg DAILY ESTEFANY Administration Atorvastatin Calcium 40 mg 12/07/19 09:00 12/11/19 09:20 Lipitor PO 40 mg DAILY ESTEFANY Administration Carvedilol 12.5 mg 12/06/19 17:00 12/11/19 09:22 Coreg PO 12.5 mg BID ESTEFANY Administration Clonidine HCl 1 p
[2019-12-11 14:00] VITALS: BP 159/55; PULSE 72; RESP 18; TEMP 36.3; O2SAT 100
[2019-12-11 17:52] VITALS: PULSE 72
[2019-12-11 18:18] LABS: Glucose Point of Care 118 (65-105)
[2019-12-11 20:51] LABS: Glucose Point of Care 171 (65-105)
[2019-12-11] MEDS: TRAZODONE HCL 50 MG TABLET PO (21:00)
[2019-12-11] MEDS: INSULIN GLARGINE (*BKC) 100 UNITS/ML 20 UNITS SUB-Q (21:00)
[2019-12-11 21:28] VITALS: BP 139/53; PULSE 76; RESP 16; TEMP 36.6; O2SAT 98
[2019-12-12] VITALS (24 sets, daily range): BP systolic 137–202; BP diastolic 53–95; PULSE 70–80; RESP 18–20; TEMP 36–37; O2SAT 94–97
[2019-12-12] MEDS: hydrALAZINE HCL 25 MG TABLET PO ×3 (05:51→20:48)
[2019-12-12 06:57] LABS: Glucose Point of Care 86 (65-105)
[2019-12-12] MEDS: INSULIN ASPART (*BKC) 100 UNITS/ML SUB-Q ×3 (09:27→18:56)
[2019-12-12] MEDS: ASPIRIN 81 MG ENTERIC TABLET PO (09:29)
[2019-12-12] MEDS: ATORVASTATIN 40 MG TABLET PO (09:29)
[2019-12-12] MEDS: SEVELAMER CARBONATE 800 MG TABLET PO ×3 (09:29→18:55)
[2019-12-12] MEDS: AMLODIPINE BESYLATE 5 MG TABLET 10 MG PO (09:29)
[2019-12-12] MEDS: carvediloL 12.5 MG TABLET PO ×2 (09:29→18:55)
[2019-12-12] MEDS: MULTIVITAMINS /C LUTEIN (CENTRUM SILVER) TABLET *BKC 1 TAB PO (09:30)
[2019-12-12] MEDS: polyethylene glycoL 3350 17 GM POWD.PACK PO (09:30)
[2019-12-12] MEDS: DULOXETINE HCL 30 MG CAPSULE.DR PO (09:30)
[2019-12-12] MEDS: FLUTICASONE PROPIONATE 0.05% NA SPR 16 GM BTL (*BKC) 2 SPRAY NASAL (09:30)
--- NOTE | 2019-12-12 11:36 | WPDNEURORHBP ---
Subjective Date/time seen: 12/12/19 11:36 Interval history: this 49-year-old gentleman is here after having had left BKA with underlying peripheral vascular disease peripheral neuropathy and also chronic kidney disease on dialysis he is doing fairly well his BKA looks clean he denies any headache nausea vomiting chest pain shortness of breath fever chills sore throat Review of Systems Review of Systems: All systems reviewed & are unremarkable except as noted in HPI and below Functional Status Ambulation Ability Ambulation Assistive Devices: Parallel Bars Exam Const: General: comfortable and no acute distress HENMT: General nose exam: Normal nares present Mouth: Yes moist mucous membranes Eyes: General: appearance normal, both eyes and all related structures Other: evidence of retinopathy stable Neck: Neck: supple and no JVD Resp: Effort & Inspection: normal respiratory effort Auscultation: clear to auscultation bilaterally Cardio: Rate: regular rate Rhythm: regular rhythm GI: GI Palp: Yes Soft to palpation Auscultation: normal bowel sounds Skin: General skin exam: normal color and no rashes or lesions noted Neuro: Other: patient's mental status is normal cranial examination is normal save for diabetic retinopathy right more than the left and also evidence of peripheral neuropathy and physical vascular disease his doing fairly well in the rehab Extrem: Other: the left BKA looks clean Psych: Mental Status: mental status grossly normal Objective Data Vital Signs Vital Signs: Vital Signs - 24 hr 12/11/19 14:00 12/11/19 17:52 12/11/19 21:28 Temperature 36.3 C L 36.6 C Pulse Rate 72 72 76 Respiratory Rate 18 16 Blood Pressure 159/55 H 139/53 L Pulse Oximetry 100 98 12/12/19 06:00 12/12/19 09:29 Temperature 36.9 C Pulse Rate 73 73 Respiratory Rate 20 Blood Pressure 143/57 H Pulse Oximetry 96 Intake/Output Intake/Output: Intake & Output 12/09/19 12/10/19 12/11/19 12/12/19 23:59 23:59 23:59 23:59 Intake Total 720 600 680 240 Output Total 2905 Balance 720 -7530 680 240 Meds/Results Medications: Active Medications Generic Name Dose Route Start Last Admin Trade Name Freq PRN Reason Stop Dose Admin Amlodipine Besylate 10 mg 12/07/19 09:00 12/12/19 09:29 Norvasc PO 10 mg DAILY ESTEFANY Administration Aspirin 81 mg 12/07/19 09:00 12/12/19 09:29 Aspirin Ec PO 81 mg DAILY ESTEFANY Administration Atorvastatin Calcium 40 mg 12/07/19 09:00 12/12/19 09:29 Lipitor PO 40 mg DAILY ESTEFANY Administration Carvedilol 12.5 mg 12/06/19 17:00 12/12/19 09:29 Coreg PO 12.5 mg BID ESTEFANY Administration Clonidine HCl 1 patch 12/09/19 09:00 12/09/19 09:44 Catapres-Tts 3 TRANSDERM 1 patch Mo@0900 ESTEFANY Administration Dextrose 12.5 gm 12/06/19 13:12 Dextrose 50% Syringe IV PUSH PRN PRN Hypoglycemia Protocol Duloxetine HCl 30 mg 12/07/19 09:00 12/12/19 09:30 Cymbalta PO 30 mg DAILY ESTEFANY Administration Epoetin Daniel 10,000 units 12/07/19 13:00 12/10/19 18:40 Epogen IV PUSH 10,000 units TUTHSA ESTEFANY Administration Fluticasone Propionate 2 spray 12/07/19 09:00 12/12/19 09:30 Flonase 0.05% Nasal [place] NASAL 2 spray DAILY ESTEFANY Administration Glucagon 1 mg 12/06/19 13:12 Glucagon For Inj IM PRN PRN Hypoglycemia Protocol Glucose 15 gm 12/06/19 13:12 Glutose 15 PO PRN PRN Hypoglycemia Protocol Hydralazine HCl 25 mg 12/06/19 14:00 12/12/19 05:51 Apresoline Tablet PO 25 mg Q8HR ESTEFANY Administration Dextrose 1,000 mls @ 100 mls/hr 12/06/19 13:12 Dextrose 5% 1,000 Ml IVPB PRN PRN Hypoglycemia Protocol Albumin Human 50 mls @ 999 mls/hr 12/10/19 07:33 Albutein IVPB 01/09/20 07:34 Q10M PRN HYPOTENSION Insulin Aspart 5 units 12/06/19 17:00 12/12/19 09:27 Novolog SUB-Q 5 units TIDWM ESTEFANY Administration Insuli
[2019-12-12 12:04] LABS: Glucose Point of Care 124 (65-105)
--- NOTE | 2019-12-12 12:16 | PCNFU ---
Nutrition Follow-Up Complete: Increased Protein needs as related to Left BKA as evidenced by wound vac. Goal: Adequate Intake of at least 75% of meals/supplements Patient has met nutritional goal. No new goal. Pt current nutrition is Renal Dialysis/[facility]CC. Nutrition recommendation: Agree Last recorded weight is 109.5 kg. Bowel Motility:+BM reported 12/08 Labs Reviewed:GLu 183,BUN 30,K 5.2,Na 130,Alb 3.2 Meds Noted:Novolog, Lantus,Miralax, Lipitor Additional Notes: Spoke with patient over telephone today due to COVID 19 precautions. Patient states to no diet questions or concerns. He is consuming 100% of meals received. He states to drinking the diet supplements provided of Nepro TID and Reji BID for wound healing 2/2 to Left BKA. Agree with diet orders. Monitoring: Will monitor every 7 days.
--- NOTE | 2019-12-12 16:35 | PM.PNNEP ---
Progress Note: A&P Assessment and Plan (1) End stage renal disease: Code(s): N18.6 - End stage renal disease Status: Acute Assessment and Plan: HD today and continue T/T/S schedule follow electrolytes, volume status, and clearance (2) Hypertension: Code(s): I10 - Essential (primary) hypertension Status: Acute Assessment and Plan: reasonable control follow trend of hemodynamics (3) Renal osteodystrophy: Code(s): N25.0 - Renal osteodystrophy Status: Acute Assessment and Plan: follow calcium and phosphorus on binders (4) Erythropoietin deficiency anemia: Code(s): D63.1 - Anemia in chronic kidney disease Status: Acute Assessment and Plan: Epogen with HD adequate iron stores by anemia studies follow H/H (5) History of left below knee amputation: Code(s): Z89.512 - Acquired absence of left leg below knee Status: Acute Assessment and Plan: local wound care PT/OT/rehab Will continue to follow. Subjective Date/time seen: 12/12/19 16:35 Tolerating dialysis at the time of my visit (seen on HD at 4:25PM); no apparent distress voiced; PT/OT going well; no new issues or events overnight or earlier this AM. Exam Narrative: Exam Narrative: General: WD/WN AA male in NAD Heart: normal S1 and S2; no rub Lungs: clear to auscultation Abdomen: soft, nontender, nondistended, positive bowel sounds Extremities: no cyanosis or clubbing; no edema Skin: warm and intact Objective Data Vital Signs Vital Signs: Vital Signs Temp Pulse Resp BP Pulse Ox 12/12/19 14:35 36.6 C 71 18 151/74 H 12/12/19 09:29 73 12/12/19 06:00 36.9 C 73 20 143/57 H 96 12/11/19 21:28 36.6 C 76 16 139/53 L 98 12/11/19 17:52 72 Intake/Output Intake/Output: Intake & Output 12/09/19 12/10/19 12/11/19 12/12/19 23:59 23:59 23:59 23:59 Intake Total 720 600 680 480 Output Total 2905 Balance 720 -2303 680 480 Meds/Results Medications: Active Medications Generic Name Dose Route Start Last Admin Trade Name Freq PRN Reason Stop Dose Admin Amlodipine Besylate 10 mg 12/07/19 09:00 12/12/19 09:29 Norvasc PO 10 mg DAILY ESTEFANY Administration Aspirin 81 mg 12/07/19 09:00 12/12/19 09:29 Aspirin Ec PO 81 mg DAILY ESTEFANY Administration Atorvastatin Calcium 40 mg 12/07/19 09:00 12/12/19 09:29 Lipitor PO 40 mg DAILY ESTEFANY Administration Carvedilol 12.5 mg 12/06/19 17:00 12/12/19 09:29 Coreg PO 12.5 mg BID ESTEFANY Administration Clonidine HCl 1 patch 12/09/19 09:00 12/09/19 09:44 Catapres-Tts 3 TRANSDERM 1 patch Mo@0900 ESTEFANY Administration Dextrose 12.5 gm 12/06/19 13:12 Dextrose 50% Syringe IV PUSH PRN PRN Hypoglycemia Protocol Duloxetine HCl 30 mg 12/07/19 09:00 12/12/19 09:30 Cymbalta PO 30 mg DAILY ESTEFANY Administration Epoetin Daniel 10,000 units 12/07/19 13:00 12/10/19 18:40 Epogen IV PUSH 10,000 units TUTHSA ESTEFANY Administration Fluticasone Propionate 2 spray 12/07/19 09:00 12/12/19 09:30 Flonase 0.05% Nasal [place] NASAL 2 spray DAILY ESTEFANY Administration Glucagon 1 mg 12/06/19 13:12 Glucagon For Inj IM PRN PRN Hypoglycemia Protocol Glucose 15 gm 12/06/19 13:12 Glutose 15 PO PRN PRN Hypoglycemia Protocol Hydralazine HCl 25 mg 12/06/19 14:00 12/12/19 13:38 Apresoline Tablet PO 25 mg Q8HR ESTEFANY Administration Dextrose 1,000 mls @ 100 mls/hr 12/06/19 13:12 Dextrose 5% 1,000 Ml IVPB PRN PRN Hypoglycemia Protocol Albumin Human 50 mls @ 999 mls/hr 12/10/19 07:33 Albutein IVPB 01/09/20 07:34 Q10M PRN HYPOTENSION Insulin Aspart 5 units 12/06/19 17:00 12/12/19 12:51 Novolog SUB-Q 1 units TIDWM ESTEFANY Administration Insulin Glargine 20 units 12/06/19 21:00 12/11/19 21:00 Lantus SUB-Q 20 units HS ESTEFANY
[2019-12-12] MEDS: EPOETIN ALFA 10,000 UNITS/ML VIAL 10000 UNITS IV PUSH (17:06)
[2019-12-12 18:48] LABS: Glucose Point of Care 109 (65-105)
[2019-12-12] MEDS: TRAZODONE HCL 50 MG TABLET PO (20:48)
[2019-12-12] MEDS: INSULIN GLARGINE (*BKC) 100 UNITS/ML 20 UNITS SUB-Q (21:31)
[2019-12-12 22:04] LABS: Glucose Point of Care 157 (65-105)
[2019-12-13] MEDS: hydrALAZINE HCL 25 MG TABLET PO ×3 (05:38→20:56)
[2019-12-13 06:00] VITALS: BP 154/63; PULSE 73; RESP 20; TEMP 37.2; O2SAT 99
[2019-12-13 06:44] LABS: Glucose Point of Care 110 (65-105)
[2019-12-13] MEDS: INSULIN ASPART (*BKC) 100 UNITS/ML SUB-Q ×3 (08:32→17:42)
[2019-12-13] MEDS: ATORVASTATIN 40 MG TABLET PO (08:33)
[2019-12-13] MEDS: SEVELAMER CARBONATE 800 MG TABLET PO ×3 (08:33→17:43)
[2019-12-13 08:34] VITALS: PULSE 73
[2019-12-13] MEDS: carvediloL 12.5 MG TABLET PO ×2 (08:34→17:42)
[2019-12-13] MEDS: FLUTICASONE PROPIONATE 0.05% NA SPR 16 GM BTL (*BKC) 2 SPRAY NASAL (08:34)
[2019-12-13] MEDS: AMLODIPINE BESYLATE 5 MG TABLET 10 MG PO (08:35)
[2019-12-13] MEDS: DULOXETINE HCL 30 MG CAPSULE.DR PO (08:35)
[2019-12-13] MEDS: MULTIVITAMINS /C LUTEIN (CENTRUM SILVER) TABLET *BKC 1 TAB PO (08:35)
[2019-12-13] MEDS: ASPIRIN 81 MG ENTERIC TABLET PO (08:35)
[2019-12-13] MEDS: polyethylene glycoL 3350 17 GM POWD.PACK PO (08:36)
[2019-12-13 12:11] LABS: Glucose Point of Care 107 (65-105)
[2019-12-13 14:00] VITALS: BP 137/54; PULSE 72; RESP 18; TEMP 36.3; O2SAT 100
--- NOTE | 2019-12-13 14:34 | WPDNEURORHBP ---
Subjective Date/time seen: 12/13/19 14:34 Interval history: this 49-year-old gentleman is here with left BKA. He has patient with end-stage renal disease on dialysis received his dialysis yesterday doing fairly well engage in therapy the wound is healing well does not have any specific complaints particularly denies any headache nausea vomiting chest pain shortness of breath fever chills or sore throat Review of Systems Review of Systems: All systems reviewed & are unremarkable except as noted in HPI and below Functional Status Ambulation Ability Ambulation Assistive Devices: Parallel Bars Exam Const: General: comfortable and no acute distress HENMT: General nose exam: Normal nares present Mouth: Yes moist mucous membranes Eyes: General: appearance normal, both eyes and all related structures Other: evidence of diabetic retinopathy right more than the left remains stable Neck: Neck: supple and no JVD Resp: Effort & Inspection: normal respiratory effort Auscultation: clear to auscultation bilaterally Cardio: Rate: regular rate Rhythm: regular rhythm GI: GI Palp: Yes Soft to palpation Auscultation: normal bowel sounds Skin: General skin exam: normal color and no rashes or lesions noted Neuro: Other: patient is awake and alert has a normal speech and language function normal cranial examination does have evidence of peripheral neuropathy and peripheral vascular disease engage in therapy fairly well Extrem: Other: left BKA is clean Psych: Mental Status: mental status grossly normal Objective Data Vital Signs Vital Signs: Vital Signs - 24 hr 12/12/19 14:35 12/12/19 14:41 12/12/19 14:45 Temperature 36.6 C Pulse Rate 71 71 71 Respiratory Rate 18 Blood Pressure 151/74 H 137/73 156/60 H Pulse Oximetry 12/12/19 15:00 12/12/19 15:15 12/12/19 15:30 Temperature Pulse Rate 72 72 72 Respiratory Rate Blood Pressure 169/95 H 157/78 H 177/82 H Pulse Oximetry 12/12/19 15:45 12/12/19 16:00 12/12/19 16:15 Temperature Pulse Rate 72 71 71 Respiratory Rate Blood Pressure 182/90 H 181/90 H 181/88 H Pulse Oximetry 12/12/19 16:30 12/12/19 16:45 12/12/19 17:00 Temperature Pulse Rate 71 70 72 Respiratory Rate Blood Pressure 187/86 H 184/87 H 186/90 H Pulse Oximetry 12/12/19 17:15 12/12/19 17:30 12/12/19 17:45 Temperature Pulse Rate 73 72 74 Respiratory Rate Blood Pressure 182/91 H 191/85 H 202/92 H Pulse Oximetry 12/12/19 18:00 12/12/19 18:11 12/12/19 18:54 Temperature 37.0 C Pulse Rate 74 75 78 Respiratory Rate 20 Blood Pressure 202/93 H 190/89 H 198/90 H Pulse Oximetry 12/12/19 18:55 12/12/19 21:17 12/13/19 06:00 Temperature 36.6 C 37.2 C Pulse Rate 78 80 73 Respiratory Rate 20 20 Blood Pressure 142/53 H 154/63 H Pulse Oximetry 94 99 12/13/19 08:34 Temperature Pulse Rate 73 Respiratory Rate Blood Pressure Pulse Oximetry Intake/Output Intake/Output: Intake & Output 12/10/19 12/11/19 12/12/19 12/13/19 23:59 23:59 23:59 23:59 Intake Total 067 676 9169 480 Output Total 2905 2900 Balance -2305 680 -1700 480 Meds/Results Medications: Active Medications Generic Name Dose Route Start Last Admin Trade Name Freq PRN Reason Stop Dose Admin Amlodipine Besylate 10 mg 12/07/19 09:00 12/13/19 08:35 Norvasc PO 10 mg DAILY ESTEFANY Administration Aspirin 81 mg 12/07/19 09:00 12/13/19 08:35 Aspirin Ec PO 81 mg DAILY ESTEFANY Administration Atorvastatin Calcium 40 mg 12/07/19 09:00 12/13/19 08:33 Lipitor PO 40 mg DAILY ESTEFANY Administration Carvedilol 12.5 mg 12/06/19 17:00 12/13/19 08:34 Coreg PO 12.5 mg BID ESTEFANY Administration Clonidine HCl 1 patch 12/09/19 09:00 12/09/19 09:44 Catapres-Tts 3 TRANSDERM 1 patch Mo@0900 ESTEFANY Administration Dextrose 12.5 gm 12/06/19 13:12 Dextrose 50% Syringe IV PUSH PRN PRN Hypoglycemia Protocol Duloxeti
[2019-12-13 17:15] LABS: Glucose Point of Care 130 (65-105)
[2019-12-13 17:42] VITALS: PULSE 72
[2019-12-13] MEDS: TRAZODONE HCL 50 MG TABLET PO (20:56)
[2019-12-13 21:16] VITALS: BP 154/63; PULSE 75; RESP 16; TEMP 36.8; O2SAT 98
[2019-12-13] MEDS: INSULIN GLARGINE (*BKC) 100 UNITS/ML 20 UNITS SUB-Q (21:56)
[2019-12-13 22:06] LABS: Glucose Point of Care 181 (65-105)
[2019-12-14] VITALS (19 sets, daily range): BP systolic 92–182; BP diastolic 55–79; PULSE 73–100; RESP 16–20; TEMP 36–37; O2SAT 95–99
[2019-12-14 05:26] LABS: Basophils Absolute Auto 0.1 K/mm3 (0.0-0.1); Basophils Percent Auto 1.3 % (0.2-1.2); Eosinophils Absolute Auto 0.2 K/mm3 (0-0.3); Eosinophils Percent Auto 3.6 % (0-4.4); Hematocrit 27.5 % (42.0-52.0); Hemoglobin 8.5 g/dL (14.0-18.0); Immature Granulocyte Absolute 0.01 K/mm3 (0.00-0.031); Immature Granulocyte Percent A 0.2 % (0-0.5); Lymphocytes Percent Auto 21.3 % (18.3-44.2); Mean Corpuscular HGB Conc 30.9 g/dl (32-36); Mean Corpuscular Hemoglobin 26.9 pg (26-34); Mean Platelet Volume 8.4 fl (7.4-10.4); Monocytes Absolute Auto 0.6 K/mm3 (0.1-0.6); Monocytes Percent Auto 9.7 % (2.6-8.5); Neutrophils Absolute Auto 3.9 K/mm3 (1.3-6.7); Neutrophils Percent Auto 63.9 % (45.5-73.1); Platelet Count Result 410 k/mm3 (150-375); Red Blood Count 3.16 M/mm3 (4.6-6.20); White Blood Count 6.1 K/mm3 (4.5-10.0)
[2019-12-14 05:44] LABS: Blood Urea Nitrogen 61 mg/dL (9-20); Calcium 8.5 mg/dL (8.4-10.2); Carbon Dioxide 28 mmol/L (22-30); Chloride 95 mmol/L (98-107); Estimated CRCL calculation 15 ml/min; Estimated Glomerular Filt Rate 10; Glucose 113 mg/dL (75-110); Sodium 132 mmol/L (137-145)
[2019-12-14] MEDS: hydrALAZINE HCL 25 MG TABLET PO ×3 (06:15→22:17)
[2019-12-14 07:03] LABS: Glucose Point of Care 106 (65-105)
[2019-12-14] MEDS: AMLODIPINE BESYLATE 5 MG TABLET 10 MG PO (09:26)
[2019-12-14] MEDS: SEVELAMER CARBONATE 800 MG TABLET PO ×3 (09:26→20:09)
[2019-12-14] MEDS: ATORVASTATIN 40 MG TABLET PO (09:27)
[2019-12-14] MEDS: ASPIRIN 81 MG ENTERIC TABLET PO (09:27)
[2019-12-14] MEDS: DULOXETINE HCL 30 MG CAPSULE.DR PO (09:27)
[2019-12-14] MEDS: carvediloL 12.5 MG TABLET PO ×2 (09:27→20:07)
[2019-12-14] MEDS: polyethylene glycoL 3350 17 GM POWD.PACK PO (09:28)
[2019-12-14] MEDS: FLUTICASONE PROPIONATE 0.05% NA SPR 16 GM BTL (*BKC) 2 SPRAY NASAL (09:28)
[2019-12-14] MEDS: INSULIN ASPART (*BKC) 100 UNITS/ML SUB-Q (09:28)
[2019-12-14] MEDS: MULTIVITAMINS /C LUTEIN (CENTRUM SILVER) TABLET *BKC 1 TAB PO (09:28)
--- NOTE | 2019-12-14 10:57 | PM.PNNEP ---
Progress Note: A&P Assessment and Plan (1) End stage renal disease: Code(s): N18.6 - End stage renal disease Status: Acute Assessment and Plan: HD today and continue T/T/S schedule follow electrolytes, volume status, and clearance (2) Hypertension: Code(s): I10 - Essential (primary) hypertension Status: Acute Assessment and Plan: reasonable control follow trend of hemodynamics (3) Renal osteodystrophy: Code(s): N25.0 - Renal osteodystrophy Status: Acute Assessment and Plan: follow calcium and phosphorus on binders (4) Erythropoietin deficiency anemia: Code(s): D63.1 - Anemia in chronic kidney disease Status: Acute Assessment and Plan: Epogen with HD adequate iron stores by anemia studies follow H/H - improving (5) History of left below knee amputation: Code(s): Z89.512 - Acquired absence of left leg below knee Status: Acute Assessment and Plan: local wound care PT/OT/rehab Will continue to follow. Subjective Date/time seen: 12/14/19 10:57 Seems to be doing reasonably well; working with PT/OT as tolerated and making slow and steady progress; due for dialysis this afternoon. Exam Narrative: Exam Narrative: General: WD/WN AA male in NAD Heart: normal S1 and S2; no rub Lungs: clear to auscultation Abdomen: soft, nontender, nondistended, positive bowel sounds Extremities: no cyanosis or clubbing; no edema Skin: no rash Objective Data Vital Signs Vital Signs: Vital Signs Temp Pulse Resp BP Pulse Ox 12/14/19 09:27 73 12/14/19 06:00 36.6 C 73 16 156/57 H 95 12/13/19 21:16 36.8 C 75 16 154/63 H 98 12/13/19 17:42 72 12/13/19 14:00 36.3 C L 72 18 137/54 L 100 Intake/Output Intake/Output: Intake & Output 12/11/19 12/12/19 12/13/19 12/14/19 23:59 23:59 23:59 23:59 Intake Total 680 1200 1080 240 Output Total 2900 Balance 680 -1700 1080 240 Meds/Results Medications: Active Medications Generic Name Dose Route Start Last Admin Trade Name Freq PRN Reason Stop Dose Admin Amlodipine Besylate 10 mg 12/07/19 09:00 12/14/19 09:26 Norvasc PO 10 mg DAILY ESTEFANY Administration Aspirin 81 mg 12/07/19 09:00 12/14/19 09:27 Aspirin Ec PO 81 mg DAILY ESTEFANY Administration Atorvastatin Calcium 40 mg 12/07/19 09:00 12/14/19 09:27 Lipitor PO 40 mg DAILY ESTEFANY Administration Carvedilol 12.5 mg 12/06/19 17:00 12/14/19 09:27 Coreg PO 12.5 mg BID ESTEFANY Administration Clonidine HCl 1 patch 12/09/19 09:00 12/09/19 09:44 Catapres-Tts 3 TRANSDERM 1 patch Mo@0900 ESTEFANY Administration Dextrose 12.5 gm 12/06/19 13:12 Dextrose 50% Syringe IV PUSH PRN PRN Hypoglycemia Protocol Duloxetine HCl 30 mg 12/07/19 09:00 12/14/19 09:27 Cymbalta PO 30 mg DAILY ESTEFANY Administration Epoetin Daniel 10,000 units 12/07/19 13:00 12/12/19 17:06 Epogen IV PUSH 10,000 units TUTHSA ESTEFANY Administration Fluticasone Propionate 2 spray 12/07/19 09:00 12/14/19 09:28 Flonase 0.05% Nasal [place] NASAL 2 spray DAILY ESTEFANY Administration Glucagon 1 mg 12/06/19 13:12 Glucagon For Inj IM PRN PRN Hypoglycemia Protocol Glucose 15 gm 12/06/19 13:12 Glutose 15 PO PRN PRN Hypoglycemia Protocol Hydralazine HCl 25 mg 12/06/19 14:00 12/14/19 06:15 Apresoline Tablet PO 25 mg Q8HR ESTEFANY Administration Dextrose 1,000 mls @ 100 mls/hr 12/06/19 13:12 Dextrose 5% 1,000 Ml IVPB PRN PRN Hypoglycemia Protocol Albumin Human 50 mls @ 999 mls/hr 12/10/19 07:33 Albutein IVPB 01/09/20 07:34 Q10M PRN HYPOTENSION Insulin Aspart 5 units 12/06/19 17:00 12/14/19 09:28 Novolog SUB-Q 5 units TIDWM ESTEFANY Administration Insulin Glargine 20 units 12/06/19 21:00 12/13/19 21:56 Lantus SUB-Q 20 units HS ESTEFANY Administration M
[2019-12-14 12:18] LABS: Glucose Point of Care 55 (65-105)
[2019-12-14 18:49] LABS: Glucose Point of Care 115 (65-105)
[2019-12-14 21:44] LABS: Hepatitis B Surface Antigen Negative (Negative)
[2019-12-14 22:02] LABS: Hepatitis B Surface Anti Res Positive
[2019-12-14] MEDS: TRAZODONE HCL 50 MG TABLET PO (22:17)
[2019-12-14] MEDS: INSULIN GLARGINE (*BKC) 100 UNITS/ML 20 UNITS SUB-Q (22:21)
[2019-12-14 22:41] LABS: Glucose Point of Care 202 (65-105)
[2019-12-15] MEDS: hydrALAZINE HCL 25 MG TABLET PO ×3 (05:37→22:56)
[2019-12-15 06:00] VITALS: BP 169/65; PULSE 78; RESP 18; TEMP 37; O2SAT 97
[2019-12-15 07:10] LABS: Glucose Point of Care 83 (65-105)
[2019-12-15] MEDS: INSULIN ASPART (*BKC) 100 UNITS/ML SUB-Q ×2 (09:05→17:52)
[2019-12-15] MEDS: FLUTICASONE PROPIONATE 0.05% NA SPR 16 GM BTL (*BKC) 2 SPRAY NASAL (09:07)
[2019-12-15 09:08] VITALS: PULSE 76
[2019-12-15] MEDS: AMLODIPINE BESYLATE 5 MG TABLET 10 MG PO (09:08)
[2019-12-15] MEDS: carvediloL 12.5 MG TABLET PO (09:08)
[2019-12-15] MEDS: ASPIRIN 81 MG ENTERIC TABLET PO (09:08)
[2019-12-15] MEDS: SEVELAMER CARBONATE 800 MG TABLET PO ×3 (09:08→17:50)
[2019-12-15] MEDS: polyethylene glycoL 3350 17 GM POWD.PACK PO (09:08)
[2019-12-15] MEDS: ATORVASTATIN 40 MG TABLET PO (09:08)
[2019-12-15] MEDS: MULTIVITAMINS /C LUTEIN (CENTRUM SILVER) TABLET *BKC 1 TAB PO (09:10)
[2019-12-15] MEDS: DULOXETINE HCL 30 MG CAPSULE.DR PO (09:10)
[2019-12-15 12:15] LABS: Glucose Point of Care 63 (65-105)
[2019-12-15 14:00] VITALS: BP 132/53; PULSE 79; RESP 18; TEMP 36.4; O2SAT 98
--- NOTE | 2019-12-15 17:28 | WPDNEURORHBP ---
Subjective Date/time seen: 12/15/19 17:28 Interval history: this 49-year-old Afro [place] gentleman is here after having had the left BKA has underlying peripheral neuropathy peripheral vascular disease and also has end-stage renal disease being on a dialysis he is concerned about his blood pressure which mostly systolic has been on the high side however is also tells me that he always run a little high blood pressure I need to adjust the some of the medication which had already done otherwise denies any headache nausea vomiting chest pain fever chills or sore throat Review of Systems Review of Systems: All systems reviewed & are unremarkable except as noted in HPI and below Functional Status Ambulation Ability Ambulation Assistive Devices: Parallel Bars Exam Const: General: comfortable and no acute distress HENMT: General nose exam: Normal nares present Mouth: Yes moist mucous membranes Eyes: General: appearance normal, both eyes and all related structures Other: the evidence of diabetic retinopathy stable Neck: Neck: supple and no JVD Resp: Effort & Inspection: normal respiratory effort Auscultation: clear to auscultation bilaterally Cardio: Rate: regular rate Rhythm: regular rhythm GI: GI Palp: Yes Soft to palpation Auscultation: normal bowel sounds Skin: General skin exam: normal color and no rashes or lesions noted Neuro: Other: patient's mental status is normal cranial nerve examination is normal he does have evidence of peripheral neuropathy and peripheral vascular disease which is stable needing assistance in the activities of daily Extrem: Other: the left BKA is clean Psych: Mental Status: mental status grossly normal Objective Data Vital Signs Vital Signs: Vital Signs - 24 hr 12/14/19 17:30 12/14/19 17:45 12/14/19 18:15 Temperature Pulse Rate 78 100 80 Respiratory Rate Blood Pressure 155/70 H 92/58 L 152/72 H Pulse Oximetry 12/14/19 18:30 12/14/19 18:45 12/14/19 19:00 Temperature Pulse Rate 80 79 79 Respiratory Rate Blood Pressure 162/70 H 160/71 H 159/70 H Pulse Oximetry 12/14/19 19:15 12/14/19 19:30 12/14/19 20:07 Temperature Pulse Rate 80 81 87 Respiratory Rate Blood Pressure 166/76 H 182/79 H Pulse Oximetry 12/14/19 22:00 12/15/19 06:00 12/15/19 09:08 Temperature 36.8 C 37.0 C Pulse Rate 85 78 76 Respiratory Rate 20 18 Blood Pressure 166/55 H 169/65 H Pulse Oximetry 99 97 12/15/19 14:00 Temperature 36.4 C Pulse Rate 79 Respiratory Rate 18 Blood Pressure 132/53 L Pulse Oximetry 98 Intake/Output Intake/Output: Intake & Output 12/12/19 12/13/19 12/14/19 12/15/19 23:59 23:59 23:59 23:59 Intake Total 1200 1080 780 840 Output Total 2900 2400 Balance -1700 1080 -1620 840 Meds/Results Medications: Active Medications Generic Name Dose Route Start Last Admin Trade Name Freq PRN Reason Stop Dose Admin Amlodipine Besylate 10 mg 12/07/19 09:00 12/15/19 09:08 Norvasc PO 10 mg DAILY ESTEFANY Administration Aspirin 81 mg 12/07/19 09:00 12/15/19 09:08 Aspirin Ec PO 81 mg DAILY ESTEFANY Administration Atorvastatin Calcium 40 mg 12/07/19 09:00 12/15/19 09:08 Lipitor PO 40 mg DAILY ESTEFANY Administration Carvedilol 25 mg 12/15/19 21:00 Coreg PO Q12HR ESTEFANY Clonidine HCl 1 patch 12/09/19 09:00 12/09/19 09:44 Catapres-Tts 3 TRANSDERM 1 patch Mo@0900 ESTEFANY Administration Dextrose 12.5 gm 12/06/19 13:12 Dextrose 50% Syringe IV PUSH PRN PRN Hypoglycemia Protocol Duloxetine HCl 30 mg 12/07/19 09:00 12/15/19 09:10 Cymbalta PO 30 mg DAILY ESTEFANY Administration Epoetin Daniel 10,000 units 12/07/19 13:00 12/14/19 20:10 Epogen IV PUSH Not Given TUTHSA ESTEFANY Fluticasone Propionate 2 spray 12/07/19 09:00 12/15/19 09:07 Flonase 0.05% Nasal [place] NASAL 2 spray DAILY ESTEFANY Administration Glucagon 1 mg 12/06/19 13:12 Glucagon For Inj
[2019-12-15 17:37] LABS: Glucose Point of Care 116 (65-105)
[2019-12-15 20:36] VITALS: PULSE 78
[2019-12-15] MEDS: carvediloL 25 MG TABLET PO (20:36)
[2019-12-15] MEDS: TRAZODONE HCL 50 MG TABLET PO (20:37)
[2019-12-15] MEDS: INSULIN GLARGINE (*BKC) 100 UNITS/ML 20 UNITS SUB-Q (20:46)
[2019-12-15 21:03] LABS: Glucose Point of Care 126 (65-105)
[2019-12-15 21:52] VITALS: BP 176/70; PULSE 78; RESP 16; TEMP 36.6; O2SAT 98
[2019-12-16 06:00] VITALS: BP 119/47; PULSE 73; RESP 18; TEMP 36.7; O2SAT 98
[2019-12-16] MEDS: hydrALAZINE HCL 25 MG TABLET PO ×3 (06:30→21:40)
[2019-12-16 07:08] LABS: Glucose Point of Care 79 (65-105)
[2019-12-16] MEDS: SEVELAMER CARBONATE 800 MG TABLET PO ×3 (09:41→17:36)
[2019-12-16] MEDS: ATORVASTATIN 40 MG TABLET PO (09:42)
[2019-12-16] MEDS: AMLODIPINE BESYLATE 5 MG TABLET 10 MG PO (09:42)
[2019-12-16] MEDS: ASPIRIN 81 MG ENTERIC TABLET PO (09:42)
[2019-12-16] MEDS: FLUTICASONE PROPIONATE 0.05% NA SPR 16 GM BTL (*BKC) 2 SPRAY NASAL (09:43)
[2019-12-16] MEDS: polyethylene glycoL 3350 17 GM POWD.PACK PO (09:43)
[2019-12-16] MEDS: DULOXETINE HCL 30 MG CAPSULE.DR PO (09:43)
[2019-12-16] MEDS: MULTIVITAMINS /C LUTEIN (CENTRUM SILVER) TABLET *BKC 1 TAB PO (09:43)
[2019-12-16] MEDS: INSULIN ASPART (*BKC) 100 UNITS/ML SUB-Q ×2 (09:51→17:38)
[2019-12-16 09:54] VITALS: PULSE 73
[2019-12-16] MEDS: carvediloL 25 MG TABLET PO ×2 (09:54→21:42)
[2019-12-16 12:46] LABS: Glucose Point of Care 68 (65-105)
[2019-12-16 14:00] VITALS: BP 150/60; PULSE 73; RESP 20; TEMP 36.3; O2SAT 98
[2019-12-16 17:29] LABS: Glucose Point of Care 125 (65-105)
--- NOTE | 2019-12-16 19:32 | PC.NURSE ---
stump dressing changed.
[2019-12-16 21:17] VITALS: BP 143/57; PULSE 78; RESP 16; TEMP 36.6; O2SAT 99
[2019-12-16 21:42] VITALS: PULSE 88
[2019-12-16] MEDS: TRAZODONE HCL 50 MG TABLET PO (21:44)
[2019-12-16] MEDS: INSULIN GLARGINE (*BKC) 100 UNITS/ML 20 UNITS SUB-Q (21:46)
[2019-12-16 21:50] LABS: Glucose Point of Care 190 (65-105)
[2019-12-17] VITALS (23 sets, daily range): BP systolic 138–211; BP diastolic 56–97; PULSE 21–87; RESP 12–20; TEMP 36–36.9; O2SAT 96–100
[2019-12-17] MEDS: hydrALAZINE HCL 25 MG TABLET PO ×3 (06:50→21:20)
[2019-12-17 07:07] LABS: Glucose Point of Care 93 (65-105)
[2019-12-17] MEDS: SEVELAMER CARBONATE 800 MG TABLET PO ×3 (08:29→21:18)
[2019-12-17] MEDS: AMLODIPINE BESYLATE 5 MG TABLET 10 MG PO (08:29)
[2019-12-17] MEDS: FLUTICASONE PROPIONATE 0.05% NA SPR 16 GM BTL (*BKC) 2 SPRAY NASAL (08:30)
[2019-12-17] MEDS: carvediloL 25 MG TABLET PO ×2 (08:30→21:19)
[2019-12-17] MEDS: DULOXETINE HCL 30 MG CAPSULE.DR PO (08:30)
[2019-12-17] MEDS: ATORVASTATIN 40 MG TABLET PO (08:30)
[2019-12-17] MEDS: MULTIVITAMINS /C LUTEIN (CENTRUM SILVER) TABLET *BKC 1 TAB PO (08:31)
[2019-12-17] MEDS: polyethylene glycoL 3350 17 GM POWD.PACK PO (08:31)
[2019-12-17] MEDS: ASPIRIN 81 MG ENTERIC TABLET PO (08:32)
--- NOTE | 2019-12-17 10:44 | PM.PNNEP ---
Progress Note: A&P Assessment and Plan (1) End stage renal disease: Code(s): N18.6 - End stage renal disease Status: Acute Assessment and Plan: HD today he will get this later after his physical therapy session. Volume status looks okay. Continue taking just 2L off each treatment (2) Hypertension: Code(s): I10 - Essential (primary) hypertension Status: Acute Assessment and Plan: Blood pressure is up and down. He is on amlodipine, clonidine patch, and hydralazine. Perhaps the latter causes the variable blood pressure. Will add lisinopril. (3) Renal osteodystrophy: Code(s): N25.0 - Renal osteodystrophy Status: Acute Assessment and Plan: Calcium and phosphorus are doing well. He is on sevelamer. (4) Erythropoietin deficiency anemia: Code(s): D63.1 - Anemia in chronic kidney disease Status: Acute Assessment and Plan: Epogen with HD adequate iron stores by anemia studies Hemoglobin doing well. (5) History of left below knee amputation: Code(s): Z89.512 - Acquired absence of left leg below knee Status: Acute Assessment and Plan: local wound care PT/OT/rehab Subjective Date/time seen: 12/17/19 10:44 Interval history: Patient is feeling okay. He is not eating so well. He is constipated. He has tried MiraLax but this is not helped. He is getting physical therapy now and is doing well. Review of Systems Cardiovascular: Cardiovascular: Reports no additional cardiovascular complaints Respiratory: Respiratory: Reports no additional respiratory complaints Gastrointestinal: Gastrointestinal: Reports no additional gastrointestinal complaints Genitourinary: Genitourinary: Reports no additional male genitourinary complaints Exam Narrative: Exam Narrative: WDWN in NAD skin no rash head ncat lungs clear cor reg no rub abd BS+ nontender and soft ext no edema. Objective Data Vital Signs Vital Signs: Vital Signs - 24 hr 12/16/19 14:00 12/16/19 21:17 12/16/19 21:42 Temperature 36.3 C L 36.6 C Pulse Rate 73 78 88 Respiratory Rate 20 16 Blood Pressure 150/60 H 143/57 H Pulse Oximetry 98 99 12/17/19 06:00 12/17/19 08:26 12/17/19 08:30 Temperature 36.6 C Pulse Rate 75 72 72 Respiratory Rate 20 Blood Pressure 148/58 H 151/62 H Pulse Oximetry 96 100 Intake/Output Intake/Output: Intake & Output 12/14/19 12/15/19 12/16/19 12/17/19 23:59 23:59 23:59 23:59 Intake Total 780 1320 540 240 Output Total 2400 Balance -1620 1320 540 240 Meds/Results Medications: Active Medications Generic Name Dose Route Start Last Admin Trade Name Freq PRN Reason Stop Dose Admin Amlodipine Besylate 10 mg 12/07/19 09:00 12/17/19 08:29 Norvasc PO 10 mg DAILY ESTEFANY Administration Aspirin 81 mg 12/07/19 09:00 12/17/19 08:32 Aspirin Ec PO 81 mg DAILY ESTEFANY Administration Atorvastatin Calcium 40 mg 12/07/19 09:00 12/17/19 08:30 Lipitor PO 40 mg DAILY ESTEFANY Administration Carvedilol 25 mg 12/15/19 21:00 12/17/19 08:30 Coreg PO 25 mg Q12HR ESTEFANY Administration Clonidine HCl 1 patch 12/09/19 09:00 12/16/19 09:42 Catapres-Tts 3 TRANSDERM 1 patch Mo@0900 ESTEFANY Administration Dextrose 12.5 gm 12/06/19 13:12 Dextrose 50% Syringe IV PUSH PRN PRN Hypoglycemia Protocol Duloxetine HCl 30 mg 12/07/19 09:00 12/17/19 08:30 Cymbalta PO 30 mg DAILY ESTEFANY Administration Epoetin Daniel 10,000 units 12/07/19 13:00 12/14/19 20:10 Epogen IV PUSH Not Given TUTA ESTEFANY Fluticasone Propionate 2 spray 12/07/19 09:00 12/17/19 08:30 Flonase 0.05% Nasal [place] NASAL 2 spray DAILY ESTEFANY Administration Glucagon 1 mg 12/06/19 13:12 Glucagon For Inj IM PRN PRN Hypoglycemia Protocol Glucose 15 gm 12/06/19 13:12 Glutose 15 PO PRN PRN Hypoglycemia Protocol Hydralazine HCl
[2019-12-17] MEDS: lisinopriL 10 MG TABLET PO (12:02)
[2019-12-17] MEDS: INSULIN ASPART (*BKC) 100 UNITS/ML SUB-Q (12:04)
--- NOTE | 2019-12-17 12:22 | WPDNEURORHBP ---
Subjective Date/time seen: 12/17/19 12:22 Interval history: this 49-year-old Afro-[place] gentleman is here with the status post left BKA his blood pressure is stable he is going to the dialysis fairly well his engage in therapy quite well and receiving dialysis at the time of discharge he will need the ramp standard walker wheelchair shower bench and drop arm commode He denies any headache nausea vomiting chest pain shortness of breath fever chills or sore throat Review of Systems Review of Systems: All systems reviewed & are unremarkable except as noted in HPI and below Functional Status Ambulation Ability Ambulation Assistive Devices: Walker, Standard Exam Const: General: comfortable and no acute distress HENMT: General nose exam: Normal nares present Mouth: Yes moist mucous membranes Eyes: General: appearance normal, both eyes and all related structures Neck: Neck: supple and no JVD Resp: Effort & Inspection: normal respiratory effort Auscultation: clear to auscultation bilaterally Cardio: Rate: regular rate Rhythm: regular rhythm GI: GI Palp: Yes Soft to palpation Auscultation: normal bowel sounds Skin: General skin exam: normal color and no rashes or lesions noted Neuro: Other: patient is awake alert will oriented in time place and person cranial examination apart from showing evidence of retinopathy is stable the strength is improving the left BKA is clean Extrem: Other: left BKA is clean Psych: Mental Status: mental status grossly normal Objective Data Vital Signs Vital Signs: Vital Signs - 24 hr 12/16/19 14:00 12/16/19 21:17 12/16/19 21:42 Temperature 36.3 C L 36.6 C Pulse Rate 73 78 88 Respiratory Rate 20 16 Blood Pressure 150/60 H 143/57 H Pulse Oximetry 98 99 12/17/19 06:00 12/17/19 08:26 12/17/19 08:30 Temperature 36.6 C Pulse Rate 75 72 72 Respiratory Rate 20 Blood Pressure 148/58 H 151/62 H Pulse Oximetry 96 100 Intake/Output Intake/Output: Intake & Output 12/14/19 12/15/19 12/16/19 12/17/19 23:59 23:59 23:59 23:59 Intake Total 780 1320 540 240 Output Total 2400 Balance -1620 1320 540 240 Meds/Results Medications: Active Medications Generic Name Dose Route Start Last Admin Trade Name Freq PRN Reason Stop Dose Admin Amlodipine Besylate 10 mg 12/07/19 09:00 12/17/19 08:29 Norvasc PO 10 mg DAILY ESTEFANY Administration Aspirin 81 mg 12/07/19 09:00 12/17/19 08:32 Aspirin Ec PO 81 mg DAILY ESTEFANY Administration Atorvastatin Calcium 40 mg 12/07/19 09:00 12/17/19 08:30 Lipitor PO 40 mg DAILY ESTEFANY Administration Carvedilol 25 mg 12/15/19 21:00 12/17/19 08:30 Coreg PO 25 mg Q12HR ESTEFANY Administration Clonidine HCl 1 patch 12/09/19 09:00 12/16/19 09:42 Catapres-Tts 3 TRANSDERM 1 patch Mo@0900 ESTEFANY Administration Dextrose 12.5 gm 12/06/19 13:12 Dextrose 50% Syringe IV PUSH PRN PRN Hypoglycemia Protocol Duloxetine HCl 30 mg 12/07/19 09:00 12/17/19 08:30 Cymbalta PO 30 mg DAILY ESTEFANY Administration Epoetin Daniel 10,000 units 12/07/19 13:00 12/14/19 20:10 Epogen IV PUSH Not Given [facility] Fluticasone Propionate 2 spray 12/07/19 09:00 12/17/19 08:30 Flonase 0.05% Nasal [place] NASAL 2 spray DAILY ESTEFANY Administration Glucagon 1 mg 12/06/19 13:12 Glucagon For Inj IM PRN PRN Hypoglycemia Protocol Glucose 15 gm 12/06/19 13:12 Glutose 15 PO PRN PRN Hypoglycemia Protocol Hydralazine HCl 25 mg 12/06/19 14:00 12/17/19 06:50 Apresoline Tablet PO 25 mg Q8HR ESTEFANY Administration Dextrose 1,000 mls @ 100 mls/hr 12/06/19 13:12 Dextrose 5% 1,000 Ml IVPB PRN PRN Hypoglycemia Protocol Albumin Human 50 mls @ 999 mls/hr 12/10/19 07:33 Albutein IVPB 01/09/20 07:34 Q10M PRN HYPOTENSION Insulin Aspart 5 units 12/06/19 17:00 12/17/19 12:04 Novolog SUB-Q 5 units TIDWM
[2019-12-17 12:40] LABS: Glucose Point of Care 94 (65-105)
[2019-12-17 15:04] LABS: Glucose Point of Care 96 (65-105)
[2019-12-17 17:20] LABS: Basophils Absolute Auto 0.1 K/mm3 (0.0-0.1); Basophils Percent Auto 0.9 % (0.2-1.2); Eosinophils Absolute Auto 0.2 K/mm3 (0-0.3); Eosinophils Percent Auto 3.5 % (0-4.4); Hematocrit 26.7 % (42.0-52.0); Hemoglobin 8.4 g/dL (14.0-18.0); Immature Granulocyte Absolute 0.01 K/mm3 (0.00-0.031); Immature Granulocyte Percent A 0.2 % (0-0.5); Lymphocytes Absolute Auto 1.21 K/mm3 (0.9-3.2); Mean Corpuscular HGB Conc 31.5 g/dl (32-36); Mean Corpuscular Hemoglobin 26.9 pg (26-34); Mean Corpuscular Volume 85.6 fl (80-100); Mean Platelet Volume 8.6 fl (7.4-10.4); Monocytes Absolute Auto 0.4 K/mm3 (0.1-0.6); Monocytes Percent Auto 6.3 % (2.6-8.5); Neutrophils Absolute Auto 4.5 K/mm3 (1.3-6.7); Neutrophils Percent Auto 70.1 % (45.5-73.1); Platelet Count Result 358 k/mm3 (150-375); Red Blood Count 3.12 M/mm3 (4.6-6.20); Red Cell Distribution Width 17.3 % (11.5-14.5); White Blood Count 6.4 K/mm3 (4.5-10.0)
[2019-12-17 17:44] LABS: Alanine Aminotransferase 7 U/L (4-50); Albumin Level 3.5 g/dL (3.5-5.1); Alkaline Phosphatase 100 U/L (38-126); Aspartate Amino Transferase 22 U/L (17-59); Bilirubin,Total 0.7 mg/dL (0.2-1.3); Blood Urea Nitrogen 77 mg/dL (9-20); Calcium 8.7 mg/dL (8.4-10.2); Carbon Dioxide 28 mmol/L (22-30); Chloride 94 mmol/L (98-107); Estimated CRCL calculation 15 ml/min; Estimated Glomerular Filt Rate 10; Glucose 126 mg/dL (75-110); Potassium 4.9 mmol/L (3.4-5.0); Sodium 130 mmol/L (137-145)
[2019-12-17 18:12] LABS: Glucose Point of Care 136 (65-105)
[2019-12-17] MEDS: EPOETIN ALFA 10,000 UNITS/ML VIAL 10000 UNITS IV PUSH (19:25)
[2019-12-17] MEDS: CLONIDINE HCL 0.1 MG TABLET PO (19:25)
[2019-12-17] MEDS: TRAZODONE HCL 50 MG TABLET PO (21:20)
[2019-12-17] MEDS: INSULIN GLARGINE (*BKC) 100 UNITS/ML 20 UNITS SUB-Q (21:21)
[2019-12-18] MEDS: hydrALAZINE HCL 25 MG TABLET PO ×3 (05:36→22:04)
[2019-12-18 06:00] VITALS: BP 138/56; PULSE 79; RESP 20; TEMP 36.7; O2SAT 98
[2019-12-18 06:43] LABS: Glucose Point of Care 102 (65-105)
[2019-12-18 06:48] LABS: Glucose Point of Care 90 (65-105)
[2019-12-18 09:19] VITALS: PULSE 68
[2019-12-18] MEDS: SEVELAMER CARBONATE 800 MG TABLET PO ×3 (09:19→17:46)
[2019-12-18] MEDS: AMLODIPINE BESYLATE 5 MG TABLET 10 MG PO (09:19)
[2019-12-18] MEDS: carvediloL 25 MG TABLET PO ×2 (09:19→22:05)
[2019-12-18] MEDS: ATORVASTATIN 40 MG TABLET PO (09:19)
[2019-12-18] MEDS: ASPIRIN 81 MG ENTERIC TABLET PO (09:19)
[2019-12-18] MEDS: FLUTICASONE PROPIONATE 0.05% NA SPR 16 GM BTL (*BKC) 2 SPRAY NASAL (09:20)
[2019-12-18] MEDS: DULOXETINE HCL 30 MG CAPSULE.DR PO (09:21)
[2019-12-18] MEDS: MULTIVITAMINS /C LUTEIN (CENTRUM SILVER) TABLET *BKC 1 TAB PO (09:21)
[2019-12-18] MEDS: lisinopriL 10 MG TABLET PO (09:21)
[2019-12-18] MEDS: polyethylene glycoL 3350 17 GM POWD.PACK PO (09:22)
[2019-12-18 12:13] LABS: Glucose Point of Care 99 (65-105)
--- NOTE | 2019-12-18 12:21 | WPDNEURORHBP ---
Subjective Date/time seen: 12/18/19 12:21 Interval history: this 49-year-old Afro-Monegasque is here after having had a left BKA he is a hypertensive and his blood pressure goes up during the dialysis and then settles down like it happened last night where I needed to use clonidine as needed basis however it seems like throughout the dialysis is systolic more so than the diastolic was elevated without any evidence of headache nausea vomiting chest pain shortness of breath and fever chills or sore throat Review of Systems Review of Systems: All systems reviewed & are unremarkable except as noted in HPI and below Functional Status Ambulation Ability Ambulation Assistive Devices: Walker, Standard Exam Const: General: comfortable and no acute distress HENMT: General nose exam: Normal nares present Mouth: Yes moist mucous membranes Eyes: General: appearance normal, both eyes and all related structures Neck: Neck: supple and no JVD Resp: Effort & Inspection: normal respiratory effort Auscultation: clear to auscultation bilaterally Cardio: Rate: regular rate Rhythm: regular rhythm GI: GI Palp: Yes Soft to palpation Auscultation: normal bowel sounds Skin: General skin exam: normal color and no rashes or lesions noted Neuro: Other: the patient is awake alert well oriented time place and person with normal cranial examination evidence of peripheral neuropathy peripheral vascular disease her and her sleep having left BKA Extrem: Other: left BKA is stable evidence of peripheral neuropathy and peripheral vascular disease Psych: Mental Status: mental status grossly normal Objective Data Vital Signs Vital Signs: Vital Signs - 24 hr 12/17/19 14:00 12/17/19 16:46 12/17/19 17:00 Temperature 36.1 C L Pulse Rate 72 77 87 Respiratory Rate 20 Blood Pressure 138/56 L 186/89 H 183/92 H Pulse Oximetry 99 12/17/19 17:15 12/17/19 17:30 12/17/19 17:45 Temperature Pulse Rate 78 80 78 Respiratory Rate Blood Pressure 186/93 H 182/89 H 178/77 H Pulse Oximetry 12/17/19 18:00 12/17/19 18:15 12/17/19 18:30 Temperature Pulse Rate 78 21 L 80 Respiratory Rate Blood Pressure 190/77 H 195/93 H 190/93 H Pulse Oximetry 12/17/19 18:45 12/17/19 19:00 12/17/19 19:15 Temperature Pulse Rate 80 81 82 Respiratory Rate Blood Pressure 208/93 H 200/88 H 211/91 H Pulse Oximetry 12/17/19 19:30 12/17/19 19:45 12/17/19 20:00 Temperature Pulse Rate 84 84 85 Respiratory Rate Blood Pressure 209/97 H 205/87 H 200/91 H Pulse Oximetry 12/17/19 20:15 12/17/19 20:20 12/17/19 21:04 Temperature 36.9 C 36.6 C Pulse Rate 84 84 81 Respiratory Rate 12 16 Blood Pressure 204/89 H 197/92 H 154/58 H Pulse Oximetry 97 12/17/19 21:19 12/18/19 06:00 12/18/19 09:19 Temperature 36.7 C Pulse Rate 64 79 68 Respiratory Rate 20 Blood Pressure 138/56 L Pulse Oximetry 98 Intake/Output Intake/Output: Intake & Output 12/15/19 12/16/19 12/17/19 12/18/19 23:59 23:59 23:59 23:59 Intake Total 1320 540 480 240 Output Total 3000 Balance 1320 540 -2520 240 Meds/Results Medications: Active Medications Generic Name Dose Route Start Last Admin Trade Name Freq PRN Reason Stop Dose Admin Amlodipine Besylate 10 mg 12/07/19 09:00 12/18/19 09:19 Norvasc PO 10 mg DAILY ESTEFANY Administration Aspirin 81 mg 12/07/19 09:00 12/18/19 09:19 Aspirin Ec PO 81 mg DAILY ESTEFANY Administration Atorvastatin Calcium 40 mg 12/07/19 09:00 12/18/19 09:19 Lipitor PO 40 mg DAILY ESTEFANY Administration Carvedilol 25 mg 12/15/19 21:00 12/18/19 09:19 Coreg PO 25 mg Q12HR ESTEFANY Administration Clonidine HCl 1 patch 12/09/19 09:00 12/16/19 09:42 Catapres-Tts 3 TRANSDERM 1 patch Mo@0900 ESTEFANY Administration Clonidine HCl 0.1 mg 12/17/19 19:03 12/17/19 19:25 Catapres PO 0.1 mg Q6HR PRN Administration Hypertension Dextrose 12.5 gm 12/06/19 1
[2019-12-18] MEDS: INSULIN ASPART (*BKC) 100 UNITS/ML SUB-Q (12:57)
[2019-12-18 14:00] VITALS: BP 139/57; PULSE 74; RESP 20; TEMP 36.2; O2SAT 96
--- NOTE | 2019-12-18 15:44 | PCPTNOTE ---
Issac Eliazar was evaluated for a standard walker on 12/18/2019 by this physical therapist medical assistant internal medicine. The standard walker will resolve patient's mobility limitations and will be used for ADL's within the home. The patient can safely use the standard walker. ?The standard walker will resolve the patient?s mobility deficits, including decreased balance, strength and endurance.
[2019-12-18 17:12] LABS: Glucose Point of Care 95 (65-105)
[2019-12-18 21:20] LABS: Glucose Point of Care 157 (65-105)
[2019-12-18 22:00] VITALS: BP 125/51; PULSE 79; RESP 18; TEMP 36.2; O2SAT 95
[2019-12-18 22:05] VITALS: PULSE 80
[2019-12-18] MEDS: TRAZODONE HCL 50 MG TABLET PO (22:06)
[2019-12-18] MEDS: INSULIN GLARGINE (*BKC) 100 UNITS/ML 20 UNITS SUB-Q (22:08)
[2019-12-19] MEDS: hydrALAZINE HCL 25 MG TABLET PO ×3 (05:44→20:43)
[2019-12-19 06:00] VITALS: BP 128/49; PULSE 75; RESP 18; TEMP 36.8; O2SAT 100
[2019-12-19 06:51] LABS: Glucose Point of Care 65 (65-105)
[2019-12-19 07:46] LABS: Glucose Point of Care 74 (65-105)
--- NOTE | 2019-12-19 08:49 | PM.PNNEP ---
Progress Note: A&P Assessment and Plan (1) End stage renal disease: Code(s): N18.6 - End stage renal disease Status: Acute Assessment and Plan: HD today he will get this later His blood pressure is a little bit high. Will remove more fluid today. (2) Hypertension: Code(s): I10 - Essential (primary) hypertension Status: Acute Assessment and Plan: Blood pressure is up and down. He is on amlodipine, clonidine patch, and hydralazine. Perhaps the latter causes the variable blood pressure. Increase lisinopril. Remove extra fluid. (3) Renal osteodystrophy: Code(s): N25.0 - Renal osteodystrophy Status: Acute Assessment and Plan: Calcium and phosphorus are doing well. He is on sevelamer. (4) Erythropoietin deficiency anemia: Code(s): D63.1 - Anemia in chronic kidney disease Status: Acute Assessment and Plan: Epogen with HD adequate iron stores by anemia studies Hemoglobin doing well. (5) History of left below knee amputation: Code(s): Z89.512 - Acquired absence of left leg below knee Status: Acute Assessment and Plan: local wound care PT/OT/rehab Subjective Date/time seen: 12/19/19 08:49 Interval history: Patient is feeling okay. Still constipated.. Review of Systems Cardiovascular: Cardiovascular: Reports no additional cardiovascular complaints Respiratory: Respiratory: Reports no additional respiratory complaints Gastrointestinal: Gastrointestinal: Reports no additional gastrointestinal complaints Genitourinary: Genitourinary: Reports no additional male genitourinary complaints Exam Narrative: Exam Narrative: WDWN in NAD skin no rash head ncat lungs clear cor reg no rub abd BS+ nontender and soft ext no edema. Objective Data Vital Signs Vital Signs: Vital Signs - 24 hr 12/18/19 09:19 12/18/19 14:00 12/18/19 22:00 Temperature 36.2 C L 36.2 C L Pulse Rate 68 74 79 Respiratory Rate 20 18 Blood Pressure 139/57 L 125/51 L Pulse Oximetry 96 95 12/18/19 22:05 12/19/19 06:00 Temperature 36.8 C Pulse Rate 80 75 Respiratory Rate 18 Blood Pressure 128/49 L Pulse Oximetry 100 Intake/Output Intake/Output: Intake & Output 12/16/19 12/17/19 12/18/19 12/19/19 23:59 23:59 23:59 23:59 Intake Total 540 480 720 Output Total 3000 Balance 540 -6731 720 Meds/Results Medications: Active Medications Generic Name Dose Route Start Last Admin Trade Name Freq PRN Reason Stop Dose Admin Amlodipine Besylate 10 mg 12/07/19 09:00 12/18/19 09:19 Norvasc PO 10 mg DAILY ESTEFANY Administration Aspirin 81 mg 12/07/19 09:00 12/18/19 09:19 Aspirin Ec PO 81 mg DAILY ESTEFANY Administration Atorvastatin Calcium 40 mg 12/07/19 09:00 12/18/19 09:19 Lipitor PO 40 mg DAILY ESTEFANY Administration Carvedilol 25 mg 12/15/19 21:00 12/18/19 22:05 Coreg PO 25 mg Q12HR ESTEFANY Administration Clonidine HCl 1 patch 12/09/19 09:00 12/16/19 09:42 Catapres-Tts 3 TRANSDERM 1 patch Mo@0900 ESTEFANY Administration Clonidine HCl 0.1 mg 12/17/19 19:03 12/17/19 19:25 Catapres PO 0.1 mg Q6HR PRN Administration Hypertension Dextrose 12.5 gm 12/06/19 13:12 Dextrose 50% Syringe IV PUSH PRN PRN Hypoglycemia Protocol Duloxetine HCl 30 mg 12/07/19 09:00 12/18/19 09:21 Cymbalta PO 30 mg DAILY ESTEFANY Administration Epoetin Daniel 10,000 units 12/07/19 13:00 12/17/19 19:25 Epogen IV PUSH 10,000 units TUTHSA ESTEFANY Administration Fluticasone Propionate 2 spray 12/07/19 09:00 12/18/19 09:20 Flonase 0.05% Nasal [place] NASAL 2 spray DAILY ESTEFANY Administration Glucagon 1 mg 12/06/19 13:12 Glucagon For Inj IM PRN PRN Hypoglycemia Protocol Glucose 15 gm 12/06/19 13:12 Glutose 15 PO PRN PRN Hypoglycemia Protocol Hydralazine HCl 25 mg 12/06/19 14:00 12/19/19 05:4
[2019-12-19] MEDS: SEVELAMER CARBONATE 800 MG TABLET PO ×3 (09:27→18:12)
[2019-12-19] MEDS: ATORVASTATIN 40 MG TABLET PO (09:27)
[2019-12-19] MEDS: ASPIRIN 81 MG ENTERIC TABLET PO (09:27)
[2019-12-19] MEDS: AMLODIPINE BESYLATE 5 MG TABLET 10 MG PO (09:27)
[2019-12-19 09:28] VITALS: PULSE 75
[2019-12-19] MEDS: FLUTICASONE PROPIONATE 0.05% NA SPR 16 GM BTL (*BKC) 2 SPRAY NASAL (09:28)
[2019-12-19] MEDS: carvediloL 25 MG TABLET PO ×2 (09:28→20:42)
[2019-12-19] MEDS: DULOXETINE HCL 30 MG CAPSULE.DR PO (09:28)
[2019-12-19] MEDS: LACTULOSE 20 GM/30 ML UDC PO (09:29)
[2019-12-19] MEDS: MULTIVITAMINS /C LUTEIN (CENTRUM SILVER) TABLET *BKC 1 TAB PO (09:30)
[2019-12-19] MEDS: polyethylene glycoL 3350 17 GM POWD.PACK PO (09:30)
[2019-12-19] MEDS: lisinopriL 20 MG TABLET PO (09:41)
--- NOTE | 2019-12-19 11:19 | WPDNEURORHBP ---
Subjective Date/time seen: 12/19/19 11:19 Interval history: this 49-year-old gentleman is here after having had a left BKA with underlying diabetes mellitus peripheral neuropathy peripheral vascular disease his diabetic status fluctuating and he knows when to take insulin this were advised to the attending nurse and follow that overall his stable making progress is going to be getting the dialysis today and will see what the blood pressure does which is fine now Review of Systems Review of Systems: All systems reviewed & are unremarkable except as noted in HPI and below Functional Status Ambulation Ability Ambulation Assistive Devices: Walker, Standard Exam Const: General: comfortable and no acute distress HENMT: General nose exam: Normal nares present Mouth: Yes moist mucous membranes Eyes: General: appearance normal, both eyes and all related structures Neck: Neck: supple and no JVD Resp: Effort & Inspection: normal respiratory effort Auscultation: clear to auscultation bilaterally Cardio: Rate: regular rate Rhythm: regular rhythm GI: GI Palp: Yes Soft to palpation Auscultation: normal bowel sounds Skin: General skin exam: normal color and no rashes or lesions noted Neuro: Other: patient is awake alert oriented times place and person speech and language functions are normal cranial examination is normal he does have evidence of peripheral neuropathy and peripheral vascular disease left BKA is stable Extrem: Other: left BKA is clean Psych: Mental Status: mental status grossly normal Objective Data Vital Signs Vital Signs: Vital Signs - 24 hr 12/18/19 14:00 12/18/19 22:00 12/18/19 22:05 Temperature 36.2 C L 36.2 C L Pulse Rate 74 79 80 Respiratory Rate 20 18 Blood Pressure 139/57 L 125/51 L Pulse Oximetry 96 95 12/19/19 06:00 12/19/19 09:28 Temperature 36.8 C Pulse Rate 75 75 Respiratory Rate 18 Blood Pressure 128/49 L Pulse Oximetry 100 Intake/Output Intake/Output: Intake & Output 12/16/19 12/17/19 12/18/19 12/19/19 23:59 23:59 23:59 23:59 Intake Total 540 480 720 240 Output Total 3000 Balance 540 -9810 720 240 Meds/Results Medications: Active Medications Generic Name Dose Route Start Last Admin Trade Name Freq PRN Reason Stop Dose Admin Amlodipine Besylate 10 mg 12/07/19 09:00 12/19/19 09:27 Norvasc PO 10 mg DAILY ESTEFANY Administration Aspirin 81 mg 12/07/19 09:00 12/19/19 09:27 Aspirin Ec PO 81 mg DAILY ESTEFANY Administration Atorvastatin Calcium 40 mg 12/07/19 09:00 12/19/19 09:27 Lipitor PO 40 mg DAILY ESTEFANY Administration Carvedilol 25 mg 12/15/19 21:00 12/19/19 09:28 Coreg PO 25 mg Q12HR ESTEFANY Administration Clonidine HCl 1 patch 12/09/19 09:00 12/16/19 09:42 Catapres-Tts 3 TRANSDERM 1 patch Mo@0900 ESTEFANY Administration Clonidine HCl 0.1 mg 12/17/19 19:03 12/17/19 19:25 Catapres PO 0.1 mg Q6HR PRN Administration Hypertension Dextrose 12.5 gm 12/06/19 13:12 Dextrose 50% Syringe IV PUSH PRN PRN Hypoglycemia Protocol Duloxetine HCl 30 mg 12/07/19 09:00 12/19/19 09:28 Cymbalta PO 30 mg DAILY ESTEFANY Administration Epoetin Daniel 10,000 units 12/07/19 13:00 12/17/19 19:25 Epogen IV PUSH 10,000 units TUTHSA ESTEFANY Administration Fluticasone Propionate 2 spray 12/07/19 09:00 12/19/19 09:28 Flonase 0.05% Nasal [place] NASAL 2 spray DAILY ESTEFANY Administration Glucagon 1 mg 12/06/19 13:12 Glucagon For Inj IM PRN PRN Hypoglycemia Protocol Glucose 15 gm 12/06/19 13:12 Glutose 15 PO PRN PRN Hypoglycemia Protocol Hydralazine HCl 25 mg 12/06/19 14:00 12/19/19 05:44 Apresoline Tablet PO 25 mg Q8HR ESTEFANY Administration Dextrose 1,000 mls @ 100 mls/hr 12/06/19 13:12 Dextrose 5% 1,000 Ml IVPB PRN PRN Hypoglycemia Protocol Albumin Human 50 mls @ 999 mls/hr 12/10/19 07:33 Albutein
--- NOTE | 2019-12-19 11:21 | PCDIET ---
Nutrition Follow-Up Complete: Nutrition Diagnosis: Increased protein needs related to left BKA as evidenced by wound vac. Nutrition Goal: Patient to consume at least 75% of meals/supplements Goal met. Patient consuming 70-100% of meals on diabetic, renal dialysis diet. Reports no longer taking Nepro but does like Reji. Recommend stopping Nepro which will also assist with volume status. Would continue Reji BID for additional 160kcal and 28g amino acid daily. Last recorded weight is 112.4kg which is increased. Hemodialysis scheduled for today. Bowel Motility: c/o constipation. Last documented BM on 12/14/19. Labs Reviewed: Glu (74) Meds Noted: Albumin, Epogen, Novolog, Lantus, Lactulose, Centrum, Miralax, Renvela Additional Notes: Left leg surgical site. No other skin issues documented. Will continue to monitor with same goal. Nutrition Monitoring and Evaluation: Will monitor every 7 days.
[2019-12-19 13:42] LABS: Glucose Point of Care 80 (65-105)
[2019-12-19 14:00] VITALS: BP 136/54; PULSE 73; RESP 18; TEMP 36.2; O2SAT 96
[2019-12-19 17:00] LABS: Glucose Point of Care 136 (65-105)
[2019-12-19] MEDS: INSULIN ASPART (*BKC) 100 UNITS/ML SUB-Q (18:12)
[2019-12-19 20:42] VITALS: PULSE 72
[2019-12-19] MEDS: TRAZODONE HCL 50 MG TABLET PO (20:42)
[2019-12-19] MEDS: INSULIN GLARGINE (*BKC) 100 UNITS/ML 20 UNITS SUB-Q (20:43)
[2019-12-19 21:56] LABS: Glucose Point of Care 142 (65-105)
[2019-12-19 22:00] VITALS: BP 143/60; PULSE 95; RESP 18; TEMP 36.6; O2SAT 97
[2019-12-20] VITALS (21 sets, daily range): BP systolic 134–203; BP diastolic 54–90; PULSE 70–97; RESP 18–20; TEMP 36–36.8; O2SAT 94–96
[2019-12-20] MEDS: hydrALAZINE HCL 25 MG TABLET PO ×3 (05:53→21:17)
[2019-12-20 07:04] LABS: Glucose Point of Care 95 (65-105)
[2019-12-20] MEDS: ATORVASTATIN 40 MG TABLET PO (07:51)
[2019-12-20] MEDS: SEVELAMER CARBONATE 800 MG TABLET PO ×3 (07:51→17:13)
[2019-12-20] MEDS: MULTIVITAMINS /C LUTEIN (CENTRUM SILVER) TABLET *BKC 1 TAB PO (07:52)
[2019-12-20] MEDS: ASPIRIN 81 MG ENTERIC TABLET PO (07:53)
[2019-12-20] MEDS: FLUTICASONE PROPIONATE 0.05% NA SPR 16 GM BTL (*BKC) 2 SPRAY NASAL (07:53)
[2019-12-20] MEDS: DULOXETINE HCL 30 MG CAPSULE.DR PO (07:53)
[2019-12-20] MEDS: polyethylene glycoL 3350 17 GM POWD.PACK PO (07:54)
[2019-12-20 08:25] LABS: Hematocrit 25.2 % (42.0-52.0); Hemoglobin 7.8 g/dL (14.0-18.0); Mean Corpuscular Hemoglobin 26.7 pg (26-34); Mean Corpuscular Volume 86.3 fl (80-100); Mean Platelet Volume 8.1 fl (7.4-10.4); Platelet Count Result 265 k/mm3 (150-375); Red Blood Count 2.92 M/mm3 (4.6-6.20); Red Cell Distribution Width 17.7 % (11.5-14.5); White Blood Count 6.1 K/mm3 (4.5-10.0)
[2019-12-20 08:39] LABS: Blood Urea Nitrogen 76 mg/dL (9-20); Calcium 8.3 mg/dL (8.4-10.2); Carbon Dioxide 29 mmol/L (22-30); Chloride 94 mmol/L (98-107); Estimated CRCL calculation 13 ml/min; Estimated Glomerular Filt Rate 9; Glucose 131 mg/dL (75-110); Potassium 5.2 mmol/L (3.4-5.0); Sodium 131 mmol/L (137-145)
[2019-12-20] MEDS: carvediloL 25 MG TABLET PO ×2 (12:50→21:17)
[2019-12-20] MEDS: lisinopriL 20 MG TABLET PO (12:50)
[2019-12-20] MEDS: AMLODIPINE BESYLATE 5 MG TABLET 10 MG PO (12:51)
--- NOTE | 2019-12-20 12:51 | PCOTNOTE ---
Patient not seen for therapy this AM due to being in dialysis.
[2019-12-20] MEDS: INSULIN ASPART (*BKC) 100 UNITS/ML SUB-Q (12:52)
[2019-12-20 13:11] LABS: Glucose Point of Care 133 (65-105)
--- NOTE | 2019-12-20 14:20 | WPDNEURORHBP ---
Subjective Date/time seen: 12/20/19 14:20 Interval history: this 49-year-old the is here after having had the left BKA presently his in the dialysis and doing fairly well denies any headache nausea vomiting chest pain or shortness of breath patient blood pressure does go up while dialysis and then settles down does the usual case has been present for some time Review of Systems Review of Systems: All systems reviewed & are unremarkable except as noted in HPI and below Functional Status Ambulation Ability Ambulation Assistive Devices: Walker, Standard Exam Const: General: comfortable and no acute distress HENMT: General nose exam: Normal nares present Mouth: Yes moist mucous membranes Eyes: General: appearance normal, both eyes and all related structures Neck: Neck: supple and no JVD Resp: Effort & Inspection: normal respiratory effort Auscultation: clear to auscultation bilaterally Cardio: Rate: regular rate Rhythm: regular rhythm GI: GI Palp: Yes Soft to palpation Auscultation: normal bowel sounds Skin: General skin exam: normal color and no rashes or lesions noted Neuro: Other: patient's neurological status is stable is working with therapy quite well and presented getting the dialysis the left BKA stable Extrem: Other: left BKA stable Psych: Mental Status: mental status grossly normal Objective Data Vital Signs Vital Signs: Vital Signs - 24 hr 12/19/19 20:42 12/19/19 22:00 12/20/19 06:00 Temperature 36.6 C 36.5 C Pulse Rate 72 95 70 Respiratory Rate 18 18 Blood Pressure 143/60 H 134/55 L Pulse Oximetry 97 96 12/20/19 08:00 12/20/19 08:15 12/20/19 08:21 Temperature 36.8 C Pulse Rate 79 79 97 Respiratory Rate 18 18 Blood Pressure 169/89 H 163/82 H Pulse Oximetry 96 12/20/19 08:30 12/20/19 08:45 12/20/19 09:00 Temperature Pulse Rate 79 78 79 Respiratory Rate Blood Pressure 167/77 H 168/70 H Pulse Oximetry 12/20/19 09:15 12/20/19 09:30 12/20/19 09:45 Temperature Pulse Rate 79 78 78 Respiratory Rate Blood Pressure 171/79 H 165/78 H 170/68 H Pulse Oximetry 12/20/19 10:00 12/20/19 10:15 12/20/19 10:30 Temperature Pulse Rate 79 89 81 Respiratory Rate Blood Pressure 170/68 H 193/87 H 183/84 H Pulse Oximetry 12/20/19 10:45 12/20/19 11:00 12/20/19 11:15 Temperature Pulse Rate 81 81 81 Respiratory Rate Blood Pressure 203/81 H 194/90 H 182/86 H Pulse Oximetry 12/20/19 11:49 12/20/19 12:14 Temperature 36.3 C L Pulse Rate 80 81 Respiratory Rate 18 Blood Pressure 188/80 H 191/86 H Pulse Oximetry Intake/Output Intake/Output: Intake & Output 12/17/19 12/18/19 12/19/19 12/20/19 23:59 23:59 23:59 23:59 Intake Total 480 720 840 240 Output Total 3000 3000 Balance -2520 720 840 -4860 Meds/Results Medications: Active Medications Generic Name Dose Route Start Last Admin Trade Name Freq PRN Reason Stop Dose Admin Amlodipine Besylate 10 mg 12/07/19 09:00 12/20/19 12:51 Norvasc PO 10 mg DAILY ESTEFANY Administration Aspirin 81 mg 12/07/19 09:00 12/20/19 07:53 Aspirin Ec PO 81 mg DAILY ESTEFANY Administration Atorvastatin Calcium 40 mg 12/07/19 09:00 12/20/19 07:51 Lipitor PO 40 mg DAILY ESTEFANY Administration Carvedilol 25 mg 12/15/19 21:00 12/20/19 12:50 Coreg PO 25 mg Q12HR ESTEFANY Administration Clonidine HCl 1 patch 12/09/19 09:00 12/16/19 09:42 Catapres-Tts 3 TRANSDERM 1 patch Mo@0900 ESTEFANY Administration Clonidine HCl 0.1 mg 12/17/19 19:03 12/17/19 19:25 Catapres PO 0.1 mg Q6HR PRN Administration Hypertension Dextrose 12.5 gm 12/06/19 13:12 Dextrose 50% Syringe IV PUSH PRN PRN Hypoglycemia Protocol Duloxetine HCl 30 mg 12/07/19 09:00 12/20/19 07:53 Cymbalta PO 30 mg DAILY ESTEFANY Administration Epoetin Daniel 10,000 units 12/07/19 13:00 12/17/19 19:25 Epogen IV PUSH 10,000 units [facility] Admi
--- NOTE | 2019-12-20 15:05 | PCPTNOTE ---
The patient treatment was not able to be completed on 12/20/2019 this am due to being off floor for dialysis. Patient missed 60 minutes of physical therapy. Will plan to continue treatment per plan of care.
[2019-12-20 17:43] LABS: Glucose Point of Care 101 (65-105)
[2019-12-20] MEDS: INSULIN GLARGINE (*BKC) 100 UNITS/ML 20 UNITS SUB-Q (21:17)
[2019-12-20] MEDS: TRAZODONE HCL 50 MG TABLET PO (21:17)
[2019-12-20 21:38] LABS: Glucose Point of Care 170 (65-105)
[2019-12-21] VITALS (23 sets, daily range): BP systolic 140–169; BP diastolic 52–81; PULSE 71–89; RESP 16–20; TEMP 36.6–37; O2SAT 93–96
[2019-12-21 05:34] LABS: Basophils Percent Auto 0.7 % (0.2-1.2); Eosinophils Absolute Auto 0.2 K/mm3 (0-0.3); Eosinophils Percent Auto 3.2 % (0-4.4); Hematocrit 24.5 % (42.0-52.0); Hemoglobin 7.7 g/dL (14.0-18.0); Immature Granulocyte Absolute 0.01 K/mm3 (0.00-0.031); Immature Granulocyte Percent A 0.2 % (0-0.5); Lymphocytes Absolute Auto 1.08 K/mm3 (0.9-3.2); Lymphocytes Percent Auto 19.5 % (18.3-44.2); Mean Corpuscular HGB Conc 31.4 g/dl (32-36); Mean Corpuscular Hemoglobin 27.1 pg (26-34); Mean Corpuscular Volume 86.3 fl (80-100); Mean Platelet Volume 8.3 fl (7.4-10.4); Monocytes Absolute Auto 0.4 K/mm3 (0.1-0.6); Monocytes Percent Auto 7.9 % (2.6-8.5); Neutrophils Absolute Auto 3.8 K/mm3 (1.3-6.7); Neutrophils Percent Auto 68.5 % (45.5-73.1); Platelet Count Result 294 k/mm3 (150-375); Red Blood Count 2.84 M/mm3 (4.6-6.20); Red Cell Distribution Width 17.6 % (11.5-14.5); White Blood Count 5.6 K/mm3 (4.5-10.0)
[2019-12-21] MEDS: hydrALAZINE HCL 25 MG TABLET PO ×3 (05:37→20:51)
[2019-12-21 06:09] LABS: Blood Urea Nitrogen 49 mg/dL (9-20); Calcium 8.5 mg/dL (8.4-10.2); Carbon Dioxide 36 mmol/L (22-30); Chloride 93 mmol/L (98-107); Estimated CRCL calculation 19 ml/min; Estimated Glomerular Filt Rate 14; Glucose 51 mg/dL (75-110); Potassium 5.1 mmol/L (3.4-5.0); Sodium 134 mmol/L (137-145)
[2019-12-21] MEDS: GLUCOSE ORAL GEL 15 GM OF GLUCSE IN 37.5 GM TUBE PO (06:14)
[2019-12-21 06:51] LABS: Glucose Point of Care 51 (65-105)
[2019-12-21 06:52] LABS: Glucose Point of Care 91 (65-105)
[2019-12-21] MEDS: AMLODIPINE BESYLATE 5 MG TABLET 10 MG PO (09:46)
[2019-12-21] MEDS: ASPIRIN 81 MG ENTERIC TABLET PO (09:46)
[2019-12-21] MEDS: ATORVASTATIN 40 MG TABLET PO (09:46)
[2019-12-21] MEDS: SEVELAMER CARBONATE 800 MG TABLET PO ×3 (09:46→18:52)
[2019-12-21] MEDS: MULTIVITAMINS /C LUTEIN (CENTRUM SILVER) TABLET *BKC 1 TAB PO (09:46)
[2019-12-21] MEDS: carvediloL 25 MG TABLET PO ×2 (09:47→20:51)
[2019-12-21] MEDS: DULOXETINE HCL 30 MG CAPSULE.DR PO (09:48)
[2019-12-21] MEDS: FLUTICASONE PROPIONATE 0.05% NA SPR 16 GM BTL (*BKC) 2 SPRAY NASAL (09:48)
[2019-12-21] MEDS: lisinopriL 20 MG TABLET PO (09:49)
--- NOTE | 2019-12-21 11:35 | WPDNEURORHBP ---
Subjective Date/time seen: 12/21/19 11:35 Review of Systems Review of Systems: All systems reviewed & are unremarkable except as noted in HPI and below Functional Status Ambulation Ability Ambulation Assistive Devices: Walker, Standard Exam Const: General: no acute distress Nutritional Appearance: average body habitus Orientation/consciousness: patient oriented x3 Eyes: General: appearance normal, both eyes and all related structures Neck: Neck: full ROM Resp: Effort & Inspection: normal respiratory effort and able to speak in complete sentences Auscultation: clear to auscultation bilaterally Cardio: Rate: regular rate Rhythm: regular rhythm GI: Auscultation: normal bowel sounds Skin: General skin exam: no rashes or lesions noted Neuro: General: patient oriented x3 and moves all extremities Cranial nerves: Yes CN's II-XII intact bilaterally, Yes Equal, round and reactive pupils present, Yes Bilaterally intact EOM present, Yes Nystagmus not present, Yes Normal facial strength present, Yes facial symmetry, Yes Midline tongue present, Yes Symmetric palate elevation present and Yes Ability to bilaterally rotate head present Speech: normal speech Gait exam (Neuro): Other gait observations present Deep tendon reflexes (DTR's): Right triceps reflex intensity grade: 1+, Left triceps reflex intensity grade: 1+, Rt Biceps (C5, C6): 1+, Left biceps reflex intensity grade: 1+, Right brachioradialis reflex intensity grade: 1+, Left brachioradialis reflex intensity grade: 1+, Right patellar reflex intensity grade: 1+, Left patellar reflex intensity grade: 0 and Right ankle reflex intensity grade: 1+ Plantar Reflex Responses: downgoing: right Coordination: [id number] test normal Extrem: General: normal to inspection Psych: Appearance: grossly normal Objective Data Vital Signs Vital Signs: Vital Signs - 24 hr 12/20/19 11:49 12/20/19 12:14 12/20/19 14:00 Temperature 36.3 C L 36.8 C Pulse Rate 80 81 84 Respiratory Rate 18 20 Blood Pressure 188/80 H 191/86 H 145/54 H Pulse Oximetry 96 12/20/19 21:17 12/20/19 22:00 12/21/19 06:00 Temperature 36.8 C 36.6 C Pulse Rate 84 82 74 Respiratory Rate 20 20 Blood Pressure 158/68 H 145/58 H Pulse Oximetry 94 93 12/21/19 09:47 Temperature Pulse Rate 74 Respiratory Rate Blood Pressure Pulse Oximetry Intake/Output Intake/Output: Intake & Output 12/18/19 12/19/19 12/20/19 12/21/19 23:59 23:59 23:59 23:59 Intake Total 720 840 720 300 Output Total 3000 Balance 720 840 -2280 300 Meds/Results Medications: Active Medications Generic Name Dose Route Start Last Admin Trade Name Freq PRN Reason Stop Dose Admin Amlodipine Besylate 10 mg 12/07/19 09:00 12/21/19 09:46 Norvasc PO 10 mg DAILY ESTEFANY Administration Aspirin 81 mg 12/07/19 09:00 12/21/19 09:46 Aspirin Ec PO 81 mg DAILY ESTEFANY Administration Atorvastatin Calcium 40 mg 12/07/19 09:00 12/21/19 09:46 Lipitor PO 40 mg DAILY ESTEFANY Administration Carvedilol 25 mg 12/15/19 21:00 12/21/19 09:47 Coreg PO 25 mg Q12HR ESTEFANY Administration Clonidine HCl 1 patch 12/09/19 09:00 12/16/19 09:42 Catapres-Tts 3 TRANSDERM 1 patch Mo@0900 ESTEFANY Administration Clonidine HCl 0.1 mg 12/17/19 19:03 12/17/19 19:25 Catapres PO 0.1 mg Q6HR PRN Administration Hypertension Dextrose 12.5 gm 12/06/19 13:12 Dextrose 50% Syringe IV PUSH PRN PRN Hypoglycemia Protocol Duloxetine HCl 30 mg 12/07/19 09:00 12/21/19 09:48 Cymbalta PO 30 mg DAILY ESTEFANY Administration Epoetin Daniel 10,000 units 12/07/19 13:00 12/17/19 19:25 Epogen IV PUSH 10,000 units TUTHSA ESTEFANY Administration Fluticasone Propionate 2 spray 12/07/19 09:00 12/21/19 09:48 Flonase 0.05% Nasal [place] NASAL 2 spray DAILY ESTEFANY Administration Glucagon 1 mg 12/06/19 13:12 Glucagon For Inj IM PRN PRN Hypoglycemia Protocol
[2019-12-21 11:58] LABS: Glucose Point of Care 119 (65-105)
--- NOTE | 2019-12-21 15:12 | PM.PNNEP ---
Progress Note: A&P Assessment and Plan (1) End stage renal disease: Code(s): N18.6 - End stage renal disease Status: Acute Assessment and Plan: HD now removing fluid. working on getting bp down. (2) Hypertension: Code(s): I10 - Essential (primary) hypertension Status: Acute Assessment and Plan: Blood pressure is better with fluid off. He is on amlodipine, lisinopril, clonidine patch, and hydralazine. (3) Renal osteodystrophy: Code(s): N25.0 - Renal osteodystrophy Status: Acute Assessment and Plan: Calcium and phosphorus are doing well. He is on sevelamer. check phos onmonday (4) Erythropoietin deficiency anemia: Code(s): D63.1 - Anemia in chronic kidney disease Status: Acute Assessment and Plan: Epogen with HD adequate iron stores by anemia studies Hemoglobin doing well. (5) History of left below knee amputation: Code(s): Z89.512 - Acquired absence of left leg below knee Status: Acute Assessment and Plan: local wound care PT/OT/rehab Subjective Date/time seen: 12/21/19 15:12 Interval history: Patient is feeling okay. no cp or sob. on HD el it well. seen at 3:05pm Review of Systems Cardiovascular: Cardiovascular: Reports no additional cardiovascular complaints Respiratory: Respiratory: Reports no additional respiratory complaints Gastrointestinal: Gastrointestinal: Reports no additional gastrointestinal complaints Genitourinary: Genitourinary: Reports no additional male genitourinary complaints Exam Narrative: Exam Narrative: WDWN in NAD skin no rash or sq nodules head ncat lungs clear cor reg no rub abd BS+ nontender and soft ext trace edema. Objective Data Vital Signs Vital Signs: Vital Signs - 24 hr 12/20/19 21:17 12/20/19 22:00 12/21/19 06:00 Temperature 36.8 C 36.6 C Pulse Rate 84 82 74 Respiratory Rate 20 20 Blood Pressure 158/68 H 145/58 H Pulse Oximetry 94 93 12/21/19 09:47 12/21/19 14:25 12/21/19 14:35 Temperature 36.6 C Pulse Rate 74 72 76 Respiratory Rate 16 Blood Pressure 149/72 H 143/70 H Pulse Oximetry 12/21/19 14:45 12/21/19 15:00 Temperature Pulse Rate 76 76 Respiratory Rate Blood Pressure 145/68 H 140/69 Pulse Oximetry Intake/Output Intake/Output: Intake & Output 12/18/19 12/19/19 12/20/19 12/21/19 23:59 23:59 23:59 23:59 Intake Total 720 840 720 540 Output Total 3000 Balance 720 840 -2280 540 Meds/Results Medications: Active Medications Generic Name Dose Route Start Last Admin Trade Name Freq PRN Reason Stop Dose Admin Amlodipine Besylate 10 mg 12/07/19 09:00 12/21/19 09:46 Norvasc PO 10 mg DAILY ESTEFANY Administration Aspirin 81 mg 12/07/19 09:00 12/21/19 09:46 Aspirin Ec PO 81 mg DAILY ESTEFANY Administration Atorvastatin Calcium 40 mg 12/07/19 09:00 12/21/19 09:46 Lipitor PO 40 mg DAILY ESTEFANY Administration Carvedilol 25 mg 12/15/19 21:00 12/21/19 09:47 Coreg PO 25 mg Q12HR ESTEFANY Administration Clonidine HCl 1 patch 12/09/19 09:00 12/16/19 09:42 Catapres-Tts 3 TRANSDERM 1 patch Mo@0900 ESTEFANY Administration Clonidine HCl 0.1 mg 12/17/19 19:03 12/17/19 19:25 Catapres PO 0.1 mg Q6HR PRN Administration Hypertension Dextrose 12.5 gm 12/06/19 13:12 Dextrose 50% Syringe IV PUSH PRN PRN Hypoglycemia Protocol Duloxetine HCl 30 mg 12/07/19 09:00 12/21/19 09:48 Cymbalta PO 30 mg DAILY ESTEFANY Administration Epoetin Daniel 10,000 units 12/07/19 13:00 12/17/19 19:25 Epogen IV PUSH 10,000 units TUTHSA ESTEFANY Administration Fluticasone Propionate 2 spray 12/07/19 09:00 12/21/19 09:48 Flonase 0.05% Nasal [place] NASAL 2 spray DAILY ESTEFANY Administration Glucagon 1 mg 12/06/19 13:12 Glucagon For Inj IM PRN PRN Hypoglycemia Protocol Glucose 15 gm 12/06/19 13:12 12/21/19
[2019-12-21] MEDS: EPOETIN ALFA 10,000 UNITS/ML VIAL 10000 UNITS IV PUSH (16:36)
[2019-12-21 19:06] LABS: Glucose Point of Care 93 (65-105)
[2019-12-21] MEDS: INSULIN GLARGINE (*BKC) 100 UNITS/ML 20 UNITS SUB-Q (20:51)
[2019-12-21] MEDS: TRAZODONE HCL 50 MG TABLET PO (20:51)
[2019-12-21 21:18] LABS: Glucose Point of Care 179 (65-105)
[2019-12-22] MEDS: GLUCOSE ORAL GEL 15 GM OF GLUCSE IN 37.5 GM TUBE PO (04:54)
[2019-12-22 04:57] LABS: Glucose Point of Care 42 (65-105)
[2019-12-22 05:26] LABS: Glucose Point of Care 70 (65-105)
[2019-12-22] MEDS: hydrALAZINE HCL 25 MG TABLET PO ×3 (05:50→20:14)
[2019-12-22 06:00] VITALS: BP 136/54; PULSE 77; RESP 16; TEMP 36.8; O2SAT 94
[2019-12-22 06:56] LABS: Glucose Point of Care 78 (65-105)
[2019-12-22] MEDS: FLUTICASONE PROPIONATE 0.05% NA SPR 16 GM BTL (*BKC) 2 SPRAY NASAL (08:20)
[2019-12-22] MEDS: SEVELAMER CARBONATE 800 MG TABLET PO ×3 (08:21→17:28)
[2019-12-22] MEDS: AMLODIPINE BESYLATE 5 MG TABLET 10 MG PO (08:21)
[2019-12-22 08:22] VITALS: PULSE 77
[2019-12-22] MEDS: DULOXETINE HCL 30 MG CAPSULE.DR PO (08:22)
[2019-12-22] MEDS: carvediloL 25 MG TABLET PO ×2 (08:22→20:14)
[2019-12-22] MEDS: ATORVASTATIN 40 MG TABLET PO (08:22)
[2019-12-22] MEDS: ASPIRIN 81 MG ENTERIC TABLET PO (08:22)
[2019-12-22] MEDS: lisinopriL 20 MG TABLET PO (08:24)
[2019-12-22] MEDS: MULTIVITAMINS /C LUTEIN (CENTRUM SILVER) TABLET *BKC 1 TAB PO (08:24)
[2019-12-22] MEDS: polyethylene glycoL 3350 17 GM POWD.PACK PO (08:25)
[2019-12-22 12:11] LABS: Glucose Point of Care 83 (65-105)
[2019-12-22 14:00] VITALS: BP 123/54; PULSE 73; RESP 20; TEMP 36.6; O2SAT 94
[2019-12-22 16:54] LABS: Glucose Point of Care 136 (65-105)
[2019-12-22] MEDS: INSULIN ASPART (*BKC) 100 UNITS/ML SUB-Q (17:27)
[2019-12-22 20:14] VITALS: PULSE 80
[2019-12-22] MEDS: TRAZODONE HCL 50 MG TABLET PO (20:15)
[2019-12-22] MEDS: INSULIN GLARGINE (*BKC) 100 UNITS/ML 10 UNITS SUB-Q (20:17)
[2019-12-22 22:00] VITALS: BP 136/54; PULSE 81; RESP 18; TEMP 37.1; O2SAT 96
[2019-12-22 23:31] LABS: Glucose Point of Care 170 (65-105)
[2019-12-23] MEDS: CALCIUM CARBONATE (TUMS) 500 MG (200 MG ELEMENTAL) PO (02:04)
[2019-12-23 05:14] LABS: Albumin Level 3.7 g/dL (3.5-5.1); Blood Urea Nitrogen 47 mg/dL (9-20); Calcium 9.1 mg/dL (8.4-10.2); Carbon Dioxide 38 mmol/L (22-30); Chloride 92 mmol/L (98-107); Estimated CRCL calculation 17 ml/min; Estimated Glomerular Filt Rate 12; Glucose 99 mg/dL (75-110); Phosphorus 2.8 mg/dL (2.5-4.5); Potassium 4.7 mmol/L (3.4-5.0); Sodium 135 mmol/L (137-145)
[2019-12-23] MEDS: hydrALAZINE HCL 25 MG TABLET PO ×3 (05:58→20:50)
[2019-12-23 05:59] VITALS: BP 134/57; PULSE 78; RESP 16; TEMP 37.1; O2SAT 90
[2019-12-23 07:03] LABS: Glucose Point of Care 98 (65-105)
[2019-12-23] MEDS: ONDANSETRON HCL ODT 4 MG TABLET PO (08:50)
[2019-12-23] MEDS: LACTULOSE 20 GM/30 ML UDC PO (09:58)
[2019-12-23] MEDS: FLUTICASONE PROPIONATE 0.05% NA SPR 16 GM BTL (*BKC) 2 SPRAY NASAL (09:59)
[2019-12-23 10:00] VITALS: PULSE 80
[2019-12-23] MEDS: DULOXETINE HCL 30 MG CAPSULE.DR PO (10:00)
[2019-12-23] MEDS: carvediloL 25 MG TABLET PO ×2 (10:00→20:50)
[2019-12-23] MEDS: SEVELAMER CARBONATE 800 MG TABLET PO ×2 (10:02→16:49)
[2019-12-23] MEDS: ATORVASTATIN 40 MG TABLET PO (10:02)
[2019-12-23] MEDS: ASPIRIN 81 MG ENTERIC TABLET PO (10:02)
[2019-12-23] MEDS: AMLODIPINE BESYLATE 5 MG TABLET 10 MG PO (10:02)
[2019-12-23] MEDS: MULTIVITAMINS /C LUTEIN (CENTRUM SILVER) TABLET *BKC 1 TAB PO (10:03)
[2019-12-23] MEDS: polyethylene glycoL 3350 17 GM POWD.PACK PO (10:03)
[2019-12-23] MEDS: lisinopriL 20 MG TABLET PO (10:03)
--- NOTE | 2019-12-23 11:50 | PC.NURSE ---
Patient c/o lightheaded and feeling dizzy O2 Sat 79% put on 1L O2. O2 Sat 100%. Patient was working with PT. P-72 BP-130/55. Patient took O2 off at 1125 and O2 Sat 100% on room air.
[2019-12-23 12:00] LABS: Glucose Point of Care 117 (65-105)
[2019-12-23 14:00] VITALS: BP 128/51; PULSE 77; RESP 20; TEMP 36.7; O2SAT 100
--- NOTE | 2019-12-23 14:06 | PCOTNOTE ---
It is recommended that this patient, Issac Perea, have a tub transfer bench for home use. This patient is a new left below-knee amputation and primarily uses a wheelchair for mobility. This patient is a dialysis patient with fluctuating endurance requiring him to perform bump over transfers. The patient also has further impairments of weakness and decreased endurance and balance. A tub transfer bench is recommended for home use in order to provide optimal safety and independence with transfers in and out of tub/shower. The tub transfer bench will resolve patient's mobility limitations and will provide safe access to his tub/shower within his home. I agree with and certify that the above recommendation is medically necessary.
--- NOTE | 2019-12-23 14:55 | PCPTNOTE ---
Issac Perea was evaluated for a slide board on 12/23/2019 by this physical therapist. The slide board will resolve patient's mobility limitations and will be used for ADL's within the home. The patient can safely use the slide board. ?The slide board will resolve the patient?s mobility deficits, including transfers in and out of bed/chairs/car and on/off commode. Sandra Hinds PT
--- NOTE | 2019-12-23 17:08 | WPDNEURORHBP ---
Subjective Date/time seen: S/P left BKA with chronic renal [id number]/20 17:08 Review of Systems Review of Systems: All systems reviewed & are unremarkable except as noted in HPI and below Functional Status Ambulation Ability Ability to Ambulate 10 Feet: Minimum Assistance X 1 Ambulation Assistive Devices: Walker, Standard Exam Const: General: cooperative, comfortable, no acute distress, alert and awake Orientation/consciousness: oriented to person, oriented to place and oriented to time Limitations: no limitations HENMT: Head: normal to inspection General nose exam: No nasal discharge present Mouth: Yes Normal oral and palatal mucosa present Eyes: General: appearance normal, both eyes and all related structures Neck: Neck: full ROM and no lymphadenopathy Resp: Effort & Inspection: normal respiratory effort and able to speak in complete sentences Auscultation: clear to auscultation bilaterally Cardio: Rate: regular rate Rhythm: regular rhythm GI: Auscultation: normal bowel sounds Skin: General skin exam: no rashes or lesions noted Neuro: General: patient oriented x3, tone normal, moves all extremities and CN's II-XI intact bilaterally Cranial nerves: Yes Nystagmus not present, Yes Normal facial strength present, Yes Midline tongue present, Yes Symmetric palate elevation present and Yes Ability to bilaterally elevate shoulders present Speech: normal speech Extrem: Left lower extremity: knee (left BKA) Objective Data Vital Signs Vital Signs: Vital Signs - 24 hr 12/22/19 20:14 12/22/19 22:00 12/23/19 05:59 Temperature 37.1 C 37.1 C Pulse Rate 80 81 78 Respiratory Rate 18 16 Blood Pressure 136/54 L 134/57 L Pulse Oximetry 96 90 12/23/19 10:00 12/23/19 14:00 Temperature 36.7 C Pulse Rate 80 77 Respiratory Rate 20 Blood Pressure 128/51 L Pulse Oximetry 100 Intake/Output Intake/Output: Intake & Output 12/20/19 12/21/19 12/22/19 12/23/19 23:59 23:59 23:59 23:59 Intake Total 720 740 900 240 Output Total 3000 4000 Balance -8360 -2157 900 240 Meds/Results Medications: Active Medications Generic Name Dose Route Start Last Admin Trade Name Freq PRN Reason Stop Dose Admin Amlodipine Besylate 10 mg 12/07/19 09:00 12/23/19 10:02 Norvasc PO 10 mg DAILY ESTEFANY Administration Aspirin 81 mg 12/07/19 09:00 12/23/19 10:02 Aspirin Ec PO 81 mg DAILY ESTEFANY Administration Atorvastatin Calcium 40 mg 12/07/19 09:00 12/23/19 10:02 Lipitor PO 40 mg DAILY ESTEFANY Administration Calcium Carbonate 200 mg 12/23/19 01:52 12/23/19 02:04 Tums PO 200 mg Q6H PRN Administration Indigestion Carvedilol 25 mg 12/15/19 21:00 12/23/19 10:00 Coreg PO 25 mg Q12HR ESTEFANY Administration Clonidine HCl 1 patch 12/09/19 09:00 12/23/19 10:00 Catapres-Tts 3 TRANSDERM 1 patch Mo@0900 ESTEFANY Administration Clonidine HCl 0.1 mg 12/17/19 19:03 12/17/19 19:25 Catapres PO 0.1 mg Q6HR PRN Administration Hypertension Dextrose 12.5 gm 12/06/19 13:12 Dextrose 50% Syringe IV PUSH PRN PRN Hypoglycemia Protocol Duloxetine HCl 30 mg 12/07/19 09:00 12/23/19 10:00 Cymbalta PO 30 mg DAILY ESTEFANY Administration Epoetin Daniel 10,000 units 12/07/19 13:00 12/21/19 16:36 Epogen IV PUSH 10,000 units TUTHSA ESTEFANY Administration Fluticasone Propionate 2 spray 12/07/19 09:00 12/23/19 09:59 Flonase 0.05% Nasal [place] NASAL 2 spray DAILY ESTEFANY Administration Glucagon 1 mg 12/06/19 13:12 Glucagon For Inj IM PRN PRN Hypoglycemia Protocol Glucose 15 gm 12/06/19 13:12 12/22/19 04:54 Glutose 15 PO 15 gm PRN PRN Administration Hypoglycemia Protocol Hydralazine HCl 25 mg 12/06/19 14:00 12/23/19 13:53 Apresoline Tablet PO 25 mg Q8HR ESTEFANY Administration Dextrose 1,000 mls @ 100 mls/hr 12/06/19 13:12 Dextrose 5% 1,000 Ml IVPB PRN PRN Hypoglycemia
[2019-12-23] MEDS: INSULIN ASPART (*BKC) 100 UNITS/ML SUB-Q (17:10)
--- NOTE | 2019-12-23 17:15 | PC.NURSE ---
Patient felt lightheaded and dizzy O2 Sat 86% O2 at 1L NC put on. O2 Sat 96% Dr. Hager notified. Orders given.
[2019-12-23 17:19] LABS: Glucose Point of Care 151 (65-105)
[2019-12-23 19:55] LABS: Glucose Point of Care 175 (65-105)
[2019-12-23] MEDS: TRAZODONE HCL 50 MG TABLET PO (20:49)
[2019-12-23 20:50] VITALS: PULSE 80
[2019-12-23] MEDS: INSULIN GLARGINE (*BKC) 100 UNITS/ML 10 UNITS SUB-Q (20:53)
[2019-12-23 22:00] VITALS: BP 129/54; PULSE 77; RESP 18; TEMP 36.7; O2SAT 96
[2019-12-24] VITALS (22 sets, daily range): BP systolic 118–164; BP diastolic 56–79; PULSE 62–83; RESP 18–19; TEMP 36–37.2; O2SAT 95–98
[2019-12-24] MEDS: hydrALAZINE HCL 25 MG TABLET PO ×3 (05:59→20:44)
[2019-12-24 06:59] LABS: Glucose Point of Care 103 (65-105)
[2019-12-24] MEDS: FLUTICASONE PROPIONATE 0.05% NA SPR 16 GM BTL (*BKC) 2 SPRAY NASAL (09:32)
[2019-12-24] MEDS: AMLODIPINE BESYLATE 5 MG TABLET 10 MG PO (09:32)
[2019-12-24] MEDS: SEVELAMER CARBONATE 800 MG TABLET PO ×3 (09:32→18:24)
[2019-12-24] MEDS: ATORVASTATIN 40 MG TABLET PO (09:33)
[2019-12-24] MEDS: DULOXETINE HCL 30 MG CAPSULE.DR PO (09:33)
[2019-12-24] MEDS: ASPIRIN 81 MG ENTERIC TABLET PO (09:33)
[2019-12-24] MEDS: MULTIVITAMINS /C LUTEIN (CENTRUM SILVER) TABLET *BKC 1 TAB PO (09:34)
[2019-12-24] MEDS: lisinopriL 20 MG TABLET PO (09:37)
[2019-12-24] MEDS: polyethylene glycoL 3350 17 GM POWD.PACK PO (09:38)
[2019-12-24] MEDS: carvediloL 25 MG TABLET PO ×2 (09:39→20:43)
[2019-12-24] MEDS: INSULIN ASPART (*BKC) 100 UNITS/ML SUB-Q ×3 (09:54→18:24)
--- NOTE | 2019-12-24 10:59 | PM.PNNEP ---
Progress Note: A&P Assessment and Plan (1) End stage renal disease: Code(s): N18.6 - End stage renal disease Status: Acute Assessment and Plan: HD later today and continue T/T/S schedule for now follow electrolytes, volume status, and clearance (2) Hypertension: Code(s): I10 - Essential (primary) hypertension Status: Acute Assessment and Plan: blood pressure under reasonable control on amlodipine, lisinopril, clonidine patch, and hydralazine. (3) Renal osteodystrophy: Code(s): N25.0 - Renal osteodystrophy Status: Acute Assessment and Plan: calcium and phosphorus stable continue binders (sevelamer) (4) Erythropoietin deficiency anemia: Code(s): D63.1 - Anemia in chronic kidney disease Status: Acute Assessment and Plan: Epogen with HD adequate iron stores by anemia studies follow H/H (5) History of left below knee amputation: Code(s): Z89.512 - Acquired absence of left leg below knee Status: Acute Assessment and Plan: local wound care PT/OT/rehab Will continue to follow. Subjective Date/time seen: 12/24/19 10:59 No new issues or problems to report; continues to do well with therapy; no apparent distress noted; due for dialysis this afternoon. Exam Narrative: Exam Narrative: General: WD/WN AA male in NAD Heart: normal S1 and S2; no rub Lungs: clear to auscultation Abdomen: soft, nontender, nondistended, positive bowel sounds Extremities: no cyanosis or clubbing; no edema Skin: no rash Objective Data Vital Signs Vital Signs: Vital Signs Temp Pulse Resp BP Pulse Ox 12/24/19 09:39 76 12/24/19 06:00 36.8 C 76 18 147/66 H 98 12/23/19 22:00 36.7 C 77 18 129/54 L 96 12/23/19 20:50 80 12/23/19 14:00 36.7 C 77 20 128/51 L 100 Intake/Output Intake/Output: Intake & Output 12/21/19 12/22/19 12/23/19 12/24/19 23:59 23:59 23:59 23:59 Intake Total 740 900 480 240 Output Total 4000 Balance -3260 900 480 240 Meds/Results Medications: Active Medications Generic Name Dose Route Start Last Admin Trade Name Freq PRN Reason Stop Dose Admin Amlodipine Besylate 10 mg 12/07/19 09:00 12/24/19 09:32 Norvasc PO 10 mg DAILY ESTEFANY Administration Aspirin 81 mg 12/07/19 09:00 12/24/19 09:33 Aspirin Ec PO 81 mg DAILY ESTEFANY Administration Atorvastatin Calcium 40 mg 12/07/19 09:00 12/24/19 09:33 Lipitor PO 40 mg DAILY ESTEFANY Administration Calcium Carbonate 200 mg 12/23/19 01:52 12/23/19 02:04 Tums PO 200 mg Q6H PRN Administration Indigestion Carvedilol 25 mg 12/15/19 21:00 12/24/19 09:39 Coreg PO 25 mg Q12HR ESTEFANY Administration Clonidine HCl 1 patch 12/09/19 09:00 12/23/19 10:00 Catapres-Tts 3 TRANSDERM 1 patch Mo@0900 ESTEFANY Administration Clonidine HCl 0.1 mg 12/17/19 19:03 12/17/19 19:25 Catapres PO 0.1 mg Q6HR PRN Administration Hypertension Dextrose 12.5 gm 12/06/19 13:12 Dextrose 50% Syringe IV PUSH PRN PRN Hypoglycemia Protocol Duloxetine HCl 30 mg 12/07/19 09:00 12/24/19 09:33 Cymbalta PO 30 mg DAILY ESTEFANY Administration Epoetin Daniel 10,000 units 12/07/19 13:00 12/21/19 16:36 Epogen IV PUSH 10,000 units TUTHSA ESTEFANY Administration Fluticasone Propionate 2 spray 12/07/19 09:00 12/24/19 09:32 Flonase 0.05% Nasal [place] NASAL 2 spray DAILY ESTEFANY Administration Glucagon 1 mg 12/06/19 13:12 Glucagon For Inj IM PRN PRN Hypoglycemia Protocol Glucose 15 gm 12/06/19 13:12 12/22/19 04:54 Glutose 15 PO 15 gm PRN PRN Administration Hypoglycemia Protocol Hydralazine HCl 25 mg 12/06/19 14:00 12/24/19 05:59 Apresoline Tablet PO 25 mg Q8HR ESTEFANY Administration Dextrose 1,000 mls @ 100 mls/hr 12/06/19 13:12 Dextrose 5% 1,000 Ml IVPB PRN PRN Hypoglycemia Protocol
--- NOTE | 2019-12-24 12:09 | PCOTNOTE ---
Patient received limited occupational therapy minutes this morning secondary to having an IV placed and going for a VQ scan.
[2019-12-24 12:28] LABS: Glucose Point of Care 103 (65-105)
--- NOTE | 2019-12-24 12:56 | PCDIET ---
Nutrition Follow-Up Complete: Nutrition Diagnosis: Increased protein needs related to Left BKA as evidenced by wound vac. Nutrition Goal: Adequate Intake of at least 75% of meals/supplements Goal met. Patient consuming 70-100% of most meals on diabetic, renal dialysis diet with Reji BID. Last recorded weight is 108 kg which is down from last review. Reported 7L UF over the weekend. Bowel Motility: Last documented BM on 12/22/19. Labs Reviewed: Glu (103) Meds Noted: Albumin, Epogen, Novolog, Lantus, Lactulose, Centrum, Renvela, Additional Notes: No skin issues other than left leg amputation site which is healing well. Will continue to monitor with same goal. Nutrition Monitoring and Evaluation: Will follow up in 7 days.
--- NOTE | 2019-12-24 13:40 | PCOTNOTE ---
Attempted occupational therapy treatment, but unable to complete as patient going for dialysis. Patient did not receive full occupational therapy minutes this date.
--- NOTE | 2019-12-24 13:55 | PCPTNOTE ---
13:55 the patient did not receive full treatment minutes (completed 20 of 30 minutes) due to leaving for dialysis and bowel issues during treatment. Sandra Hinds PT
--- NOTE | 2019-12-24 15:33 | P.CONIM_ITS ---
Assessment and Plan Assessment and plan (1) Shortness of breath: Code(s): R06.02 - Shortness of breath Status: Acute Assessment and Plan: Patient became short of breath yesterday and began requiring 1 L O2. There is no evidence of hypoxia per chart review, but patient reports he had dropped to approximately 70%. Today, he is 98% on 1 L O2 and reports his SOB has improved. * CXR reveals no acute cardiopulmonary findings * Pulmonary perfusion scan revealed normal lung perfusion * Will obtain EKG * Order apnea link overnight. * Continue to monitor respiratory status. * Wean O2 as tolerated to goal saturation 92% or above. (2) End stage renal disease: Code(s): N18.6 - End stage renal disease Status: Acute Assessment and Plan: Patient has a history of ESRD with renal osteodystrophy and associated anemia. * Nephrology is managing * Continue dialysis on //Mon * Continue to monitor electrolytes (3) Hypertension: Code(s): I10 - Essential (primary) hypertension Status: Acute Assessment and Plan: Blood pressures were reviewed and appear to be mostly well controlled but does fluctuate. BP evaluated today and stable at 133/67. * Continue amlodipine, carvedilol, lisinopril, and hydralazine * Continue to monitor blood pressure (4) Uncontrolled type 2 diabetes mellitus with peripheral neuropathy: Code(s): E11.42 - Type 2 diabetes mellitus with diabetic polyneuropathy; E11.65 - Type 2 diabetes mellitus with hyperglycemia Status: Acute Assessment and Plan: Blood sugars were reviewed and appear to be reasonably well controlled with few episodes of hypoglycemia. A1c on 12/07/19 was 9.7. * Continue accuchecks ACHS, SSI, and hypoglycemia protocol * Continue lantus 10 U HS * Continue diabetic diet * Continue to monitor blood sugar (5) History of left below knee amputation: Code(s): Z89.512 - Acquired absence of left leg below knee Status: Acute Assessment and Plan: Patient underwent left BKA on 12/03/[address] Josue at [facility] with placement of wound vac which was removed 12/09/19. * He will require follow up in 3 weeks for staple removal. * Prosthetics consultation will be arranged pending adequate healing of stump. (6) Erythropoietin deficiency anemia: Code(s): D63.1 - Anemia in chronic kidney disease Status: Acute Assessment and Plan: Patient is anemic secondary to ESRD. Since admission, Hgb has ranged from 7.7-8.5. * Will continue to monitor H&H (7) Peripheral vascular disease: Code(s): I73.9 - Peripheral vascular disease, unspecified Status: Acute Assessment and Plan: Underwent stent placement to left popliteal artery by Dr. Sorto at [facility]. * Continue aspirin * Patient scheduled for follow up with Dr. Sorto on 12/31/19 HPI Data of Consult Consult date: 12/24/19 Requesting Physician: Jer Sen MD Primary Care Provider: UNKNOWN,DOCTOR Consult Narrative Narrative: Date of service: 12/24/2019 Issac Preea is a 49 year old male with a PMH significant for T2DM, HTN, and ESRD on HD who is admitted to [facility] on 12/07/19 after undergoing left below-knee amputation on 12/03/19 at [facility] by Dr. Josue. He denies pain related to this procedure. He has been getting dialysis during his stay. He tells me that he has been more short of breath for 1 day and began requiring oxygen yesterday. He says he has a hard time taking a deep breath. When
--- NOTE | 2019-12-24 15:33 | PM.IMCN ---
Assessment and Plan Assessment and plan (1) Shortness of breath: Code(s): R06.02 - Shortness of breath Status: Acute Assessment and Plan: Patient became short of breath yesterday and began requiring 1 L O2. There is no evidence of hypoxia per chart review, but patient reports he had dropped to approximately 70%. Today, he is 98% on 1 L O2 and reports his SOB has improved. CXR reveals no acute cardiopulmonary findings Pulmonary perfusion scan revealed normal lung perfusion Will obtain EKG Order apnea link overnight. Continue to monitor respiratory status. Wean O2 as tolerated to goal saturation 92% or above. (2) End stage renal disease: Code(s): N18.6 - End stage renal disease Status: Acute Assessment and Plan: Patient has a history of ESRD with renal osteodystrophy and associated anemia. Nephrology is managing Continue dialysis on //Mon Continue to monitor electrolytes (3) Hypertension: Code(s): I10 - Essential (primary) hypertension Status: Acute Assessment and Plan: Blood pressures were reviewed and appear to be mostly well controlled but does fluctuate. BP evaluated today and stable at 133/67. Continue amlodipine, carvedilol, lisinopril, and hydralazine Continue to monitor blood pressure (4) Uncontrolled type 2 diabetes mellitus with peripheral neuropathy: Code(s): E11.42 - Type 2 diabetes mellitus with diabetic polyneuropathy; E11.65 - Type 2 diabetes mellitus with hyperglycemia Status: Acute Assessment and Plan: Blood sugars were reviewed and appear to be reasonably well controlled with few episodes of hypoglycemia. A1c on 12/07/19 was 9.7. Continue accuchecks ACHS, SSI, and hypoglycemia protocol Continue lantus 10 U HS Continue diabetic diet Continue to monitor blood sugar (5) History of left below knee amputation: Code(s): Z89.512 - Acquired absence of left leg below knee Status: Acute Assessment and Plan: Patient underwent left BKA on 12/03/[address] Josue at [facility] with placement of wound vac which was removed 12/09/19. He will require follow up in 3 weeks for staple removal. Prosthetics consultation will be arranged pending adequate healing of stump. (6) Erythropoietin deficiency anemia: Code(s): D63.1 - Anemia in chronic kidney disease Status: Acute Assessment and Plan: Patient is anemic secondary to ESRD. Since admission, Hgb has ranged from 7.7-8.5. Will continue to monitor H&H (7) Peripheral vascular disease: Code(s): I73.9 - Peripheral vascular disease, unspecified Status: Acute Assessment and Plan: Underwent stent placement to left popliteal artery by Dr. Sorto at [facility]. Continue aspirin Patient scheduled for follow up with Dr. Sorto on 12/31/19 HPI Data of Consult Consult date: 12/24/19 Requesting Physician: Jer Sen MD Primary Care Provider: UNKNOWN,DOCTOR Consult Narrative Narrative: Date of service: 12/24/2019 Issac Perea is a 49 year old male with a PMH significant for T2DM, HTN, and ESRD on HD who is admitted to [facility] on 12/07/19 after undergoing left below-knee amputation on 12/03/19 at [facility] by Dr. Josue. He denies pain related to this procedure. He has been getting dialysis during his stay. He tells me that he has been more short of breath for 1 day and began requiring oxygen yesterday. He says he has a hard time taking a deep breath. When he focuses on his breathing this seems to help him. He endorses cough which is exacerbated by deep breathing. His cough is nonproductive. He denies chest pain. He has no difficulty lying flat. He reports he has been eating well and sleeping well. He noted he was previously constipated but had a regular bowel movement yesterday. He has not urinated which is normal for him due to ESRD. He has no other acute concerns at this time.
--- NOTE | 2019-12-24 15:50 | WPDNEURORHBP ---
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 is here after having had [id number] amputation he has peripheral neuropathy and peripheral vascular disease is requiring oxygen and is going to get the Joey and link done today and then we will decide what level oxygen he would noon and at home in the meantime he is getting dialysis today does not have any new complaints particularly no headache nausea vomiting chest pain shortness of breath fever chills or sore throat Review of Systems Review of Systems: All systems reviewed & are unremarkable except as noted in HPI and below Functional Status Ambulation Ability Ability to Ambulate 10 Feet: Minimum Assistance X 1 Ambulation Assistive Devices: Walker, Standard Exam Const: General: comfortable and no acute distress HENMT: General nose exam: Normal nares present Mouth: Yes moist mucous membranes Eyes: General: appearance normal, both eyes and all related structures Neck: Neck: supple and no JVD Resp: Effort & Inspection: normal respiratory effort Auscultation: clear to auscultation bilaterally Cardio: Rate: regular rate Rhythm: regular rhythm GI: GI Palp: Yes Soft to palpation Skin: General skin exam: normal color Neuro: Other: remains awake and alert well oriented time place and person with evidence of peripheral neuropathy and peripheral vascular disease has done well in the rehab Extrem: Other: left BKA is clean Psych: Mental Status: mental status grossly normal Objective Data Vital Signs Vital Signs: Vital Signs - 24 hr 12/23/19 20:50 12/23/19 22:00 12/24/19 06:00 Temperature 36.7 C 36.8 C Pulse Rate 80 77 76 Respiratory Rate 18 18 Blood Pressure 129/54 L 147/66 H Pulse Oximetry 96 98 12/24/19 09:39 12/24/19 13:30 Temperature 36.6 C Pulse Rate 76 66 Respiratory Rate 18 Blood Pressure 133/67 Pulse Oximetry Intake/Output Intake/Output: Intake & Output 12/21/19 12/22/19 12/23/19 12/24/19 23:59 23:59 23:59 23:59 Intake Total 740 900 480 480 Output Total 4000 Balance -3260 900 480 480 Meds/Results Medications: Active Medications Generic Name Dose Route Start Last Admin Trade Name Freq PRN Reason Stop Dose Admin Amlodipine Besylate 10 mg 12/07/19 09:00 12/24/19 09:32 Norvasc PO 10 mg DAILY ESTEFANY Administration Aspirin 81 mg 12/07/19 09:00 12/24/19 09:33 Aspirin Ec PO 81 mg DAILY ESTEFANY Administration Atorvastatin Calcium 40 mg 12/07/19 09:00 12/24/19 09:33 Lipitor PO 40 mg DAILY ESTEFANY Administration Calcium Carbonate 200 mg 12/23/19 01:52 12/23/19 02:04 Tums PO 200 mg Q6H PRN Administration Indigestion Carvedilol 25 mg 12/15/19 21:00 12/24/19 09:39 Coreg PO 25 mg Q12HR ESTEFANY Administration Clonidine HCl 1 patch 12/09/19 09:00 12/23/19 10:00 Catapres-Tts 3 TRANSDERM 1 patch Mo@0900 ESTEFANY Administration Clonidine HCl 0.1 mg 12/17/19 19:03 12/17/19 19:25 Catapres PO 0.1 mg Q6HR PRN Administration Hypertension Dextrose 12.5 gm 12/06/19 13:12 Dextrose 50% Syringe IV PUSH PRN PRN Hypoglycemia Protocol Duloxetine HCl 30 mg 12/07/19 09:00 12/24/19 09:33 Cymbalta PO 30 mg DAILY ESTEFANY Administration Epoetin Daniel 10,000 units 12/07/19 13:00 12/21/19 16:36 Epogen IV PUSH 10,000 units TUTHSA ESTEFANY Administration Fluticasone Propionate 2 spray 12/07/19 09:00 12/24/19 09:32 Flonase 0.05% Nasal [place] NASAL 2 spray DAILY ESTEFANY Administration Glucagon 1 mg 12/06/19 13:12 Glucagon For Inj IM PRN PRN Hypoglycemia Protocol Glucose 15 gm 12/06/19 13:12 12/22/19 04:54 Glutose 15 PO 15 gm PRN PRN Administration Hypoglycemia Protocol Hydralazine HCl 25 mg 12/06/19 14:00 12/24/19 05:59 Apresoline Tablet PO 25 mg Q8HR ESTEFANY Administration Dextrose 1,000 mls @ 100 mls/hr 12/06/19 13:12 Dex
[2019-12-24] MEDS: EPOETIN ALFA 10,000 UNITS/ML VIAL 10000 UNITS IV PUSH (17:36)
[2019-12-24 18:08] LABS: Glucose Point of Care 106 (65-105)
[2019-12-24 20:11] LABS: Glucose Point of Care 157 (65-105)
[2019-12-24] MEDS: TRAZODONE HCL 50 MG TABLET PO (20:43)
[2019-12-24] MEDS: INSULIN GLARGINE (*BKC) 100 UNITS/ML 10 UNITS SUB-Q (20:44)
[2019-12-25] MEDS: CALCIUM CARBONATE (TUMS) 500 MG (200 MG ELEMENTAL) PO (01:37)
[2019-12-25] MEDS: hydrALAZINE HCL 25 MG TABLET PO ×2 (05:46→14:28)
[2019-12-25 05:52] LABS: Basophils Absolute Auto 0.1 K/mm3 (0.0-0.1); Basophils Percent Auto 0.9 % (0.2-1.2); Eosinophils Absolute Auto 0.2 K/mm3 (0-0.3); Eosinophils Percent Auto 3.4 % (0-4.4); Hematocrit 23.5 % (42.0-52.0); Hemoglobin 7.2 g/dL (14.0-18.0); Immature Granulocyte Absolute 0.01 K/mm3 (0.00-0.031); Immature Granulocyte Percent A 0.2 % (0-0.5); Lymphocytes Absolute Auto 0.99 K/mm3 (0.9-3.2); Lymphocytes Percent Auto 18.5 % (18.3-44.2); Mean Corpuscular HGB Conc 30.6 g/dl (32-36); Mean Platelet Volume 8.3 fl (7.4-10.4); Monocytes Absolute Auto 0.3 K/mm3 (0.1-0.6); Monocytes Percent Auto 6.2 % (2.6-8.5); Neutrophils Absolute Auto 3.8 K/mm3 (1.3-6.7); Neutrophils Percent Auto 70.8 % (45.5-73.1); Platelet Count Result 234 k/mm3 (150-375); Red Blood Count 2.67 M/mm3 (4.6-6.20); Red Cell Distribution Width 17.6 % (11.5-14.5); White Blood Count 5.3 K/mm3 (4.5-10.0)
[2019-12-25 06:00] VITALS: BP 150/64; PULSE 73; RESP 18; TEMP 37.6; O2SAT 99
[2019-12-25 06:59] LABS: Glucose Point of Care 67 (65-105)
[2019-12-25] MEDS: INSULIN ASPART (*BKC) 100 UNITS/ML SUB-Q (09:02)
[2019-12-25] MEDS: SEVELAMER CARBONATE 800 MG TABLET PO ×2 (09:06→12:53)
[2019-12-25] MEDS: AMLODIPINE BESYLATE 5 MG TABLET 10 MG PO (09:06)
[2019-12-25 09:07] VITALS: PULSE 73
[2019-12-25] MEDS: carvediloL 25 MG TABLET PO (09:07)
[2019-12-25] MEDS: ATORVASTATIN 40 MG TABLET PO (09:07)
[2019-12-25] MEDS: DULOXETINE HCL 30 MG CAPSULE.DR PO (09:07)
[2019-12-25] MEDS: FLUTICASONE PROPIONATE 0.05% NA SPR 16 GM BTL (*BKC) 2 SPRAY NASAL (09:07)
[2019-12-25] MEDS: ASPIRIN 81 MG ENTERIC TABLET PO (09:07)
[2019-12-25] MEDS: LACTULOSE 20 GM/30 ML UDC PO (09:08)
[2019-12-25] MEDS: lisinopriL 20 MG TABLET PO (09:08)
[2019-12-25] MEDS: MULTIVITAMINS /C LUTEIN (CENTRUM SILVER) TABLET *BKC 1 TAB PO (09:08)
--- NOTE | 2019-12-25 09:47 | ECG_ITS ---
Measurements Intervals [place] Rate: 69 P: 2 IA: 189 QRS: 3 QRSD: 90 T: 55 QT: 435 QTc: 467 Interpretive Statements SINUS RHYTHM BASELINE ARTIFACT- V4 NORMAL ECG Electronically Signed On 12-25-2019 11:43:31 CDT by Calin eBrnal D.O.
--- NOTE | 2019-12-25 12:23 | WPDNEURORHBP ---
Subjective Date/time seen: 12/25/19 12:23 Interval history: This 49-year-old gentleman is going to be discharged today he has finished his rehab doing fairly well he will be going back with home health services and also follow-up with the dialysis he does not have any new specific complaints he was here after having had the left [id number] amputation Review of Systems Review of Systems: All systems reviewed & are unremarkable except as noted in HPI and below Functional Status Ambulation Ability Ability to Ambulate 10 Feet: Minimum Assistance X 1 Ambulation Assistive Devices: Walker, Standard Exam Const: General: comfortable and no acute distress HENMT: General nose exam: Normal nares present Mouth: Yes moist mucous membranes Eyes: General: appearance normal, both eyes and all related structures Neck: Neck: supple and no JVD Resp: Effort & Inspection: normal respiratory effort Auscultation: clear to auscultation bilaterally Cardio: Rate: regular rate Rhythm: regular rhythm GI: GI Palp: Yes Soft to palpation Auscultation: normal bowel sounds Skin: General skin exam: normal color and no rashes or lesions noted Neuro: Other: patient is awake and alert well oriented to time place and person and his neurological status has significantly improved as for as the ability to perform the activities of daily living Extrem: Other: the stump looks clean and healthy Psych: Mental Status: mental status grossly normal Objective Data Vital Signs Vital Signs: Vital Signs - 24 hr 12/24/19 13:30 12/24/19 13:50 12/24/19 14:00 Temperature 36.6 C Pulse Rate 66 72 71 Respiratory Rate 18 Blood Pressure 133/67 132/63 135/63 Pulse Oximetry 12/24/19 14:15 12/24/19 14:30 12/24/19 14:45 Temperature Pulse Rate 71 71 62 Respiratory Rate Blood Pressure 120/58 L 118/59 L 126/60 Pulse Oximetry 12/24/19 15:00 12/24/19 15:15 12/24/19 15:17 Temperature Pulse Rate 72 72 76 Respiratory Rate Blood Pressure 133/60 141/64 H 153/66 H Pulse Oximetry 12/24/19 15:30 12/24/19 15:45 12/24/19 16:00 Temperature Pulse Rate 72 72 72 Respiratory Rate Blood Pressure 140/66 140/64 140/65 Pulse Oximetry 12/24/19 16:15 12/24/19 16:31 12/24/19 16:45 Temperature Pulse Rate 71 74 75 Respiratory Rate Blood Pressure 120/65 146/65 H 153/69 H Pulse Oximetry 12/24/19 17:00 12/24/19 17:41 12/24/19 20:43 Temperature 37.1 C Pulse Rate 76 76 80 Respiratory Rate 18 Blood Pressure 136/79 150/66 H Pulse Oximetry 12/24/19 22:00 12/24/19 22:06 12/25/19 06:00 Temperature 37.2 C 37.6 C Pulse Rate 83 73 Respiratory Rate 19 18 Blood Pressure 164/56 H 150/64 H Pulse Oximetry 95 96 99 12/25/19 09:07 Temperature Pulse Rate 73 Respiratory Rate Blood Pressure Pulse Oximetry Intake/Output Intake/Output: Intake & Output 12/22/19 12/23/19 12/24/19 12/25/19 23:59 23:59 23:59 23:59 Intake Total 900 480 960 240 Output Total 2500 Balance 900 480 -1540 240 Meds/Results Medications: Active Medications Generic Name Dose Route Start Last Admin Trade Name Freq PRN Reason Stop Dose Admin Amlodipine Besylate 10 mg 12/07/19 09:00 12/25/19 09:06 Norvasc PO 10 mg DAILY ESTEFANY Administration Aspirin 81 mg 12/07/19 09:00 12/25/19 09:07 Aspirin Ec PO 81 mg DAILY ESTEFANY Administration Atorvastatin Calcium 40 mg 12/07/19 09:00 12/25/19 09:07 Lipitor PO 40 mg DAILY ESTEFANY Administration Calcium Carbonate 200 mg 12/23/19 01:52 12/25/19 01:37 Tums PO 200 mg Q6H PRN Administration Indigestion Carvedilol 25 mg 12/15/19 21:00 12/25/19 09:07 Coreg PO 25 mg Q12HR ESTEFANY Administration Clonidine HCl 1 patch 12/09/19 09:00 12/23/19 10:00 Catapres-Tts 3 TRANSDERM 1 patch Mo@0900 ESTEFANY Administration Clonidine HCl 0.1 mg 12/17/19 19:03 12/17/19 19:25 Catapres PO 0.1 mg Q6HR PRN Administration H
[2019-12-25 12:38] LABS: Glucose Point of Care 73 (65-105)
[2019-12-25 12:45] VITALS: O2SAT 91
[2019-12-25 12:50] VITALS: O2SAT 96
[2019-12-25 12:55] VITALS: O2SAT 94
--- NOTE | 2019-12-25 13:23 | P.PNIM_ITS ---
Progress Note: A&P Assessment and Plan (1) Shortness of breath: Code(s): R06.02 - Shortness of breath Status: Acute Assessment and Plan: Patient became short of breath on 12/24/19 and began requiring 1 L O2. There is no evidence of hypoxia per chart review, but patient reports he had dropped to approximately 70%. He was weaned from O2 and is maintaining adequate oxygen saturation on room air. He no longer endorses SOB. * CXR reveals no acute cardiopulmonary findings * Pulmonary perfusion scan revealed normal lung perfusion * EKG with normal sinus rhythm * Apnea link perfomed on 12/23 overnight with no episodes of apnea * Home O2 trial performed and patient will not require oxygen following discharge * Patient should follow up with primary care provider in 1-2 weeks to assess respiratory status (2) End stage renal disease: Code(s): N18.6 - End stage renal disease Status: Acute Assessment and Plan: Patient has a history of ESRD with renal osteodystrophy and associated anemia. * Nephrology is managing * Continue dialysis on //Mon (3) Hypertension: Code(s): I10 - Essential (primary) hypertension Status: Acute Assessment and Plan: Blood pressures were reviewed and appear to be mostly well controlled but does fluctuate. BP evaluated today and stable at 150/64. * Continue amlodipine, carvedilol, lisinopril, and hydralazine * Continue to monitor blood pressure (4) Uncontrolled type 2 diabetes mellitus with peripheral neuropathy: Code(s): E11.42 - Type 2 diabetes mellitus with diabetic polyneuropathy; E11.65 - Type 2 diabetes mellitus with hyperglycemia Status: Acute Assessment and Plan: Blood sugars were reviewed and appear to be reasonably well controlled with few episodes of hypoglycemia. A1c on 12/07/19 was 9.7. * Continue accuchecks ACHS, SSI, and hypoglycemia protocol * Continue lantus 10 U HS * Continue diabetic diet * Continue to monitor blood sugar (5) History of left below knee amputation: Code(s): Z89.512 - Acquired absence of left leg below knee Status: Acute Assessment and Plan: Patient underwent left BKA on 12/03/[address] Josue at [facility] with placement of wound vac which was removed 12/09/19. * He will require follow up in 3 weeks for staple removal. * Prosthetics consultation will be arranged pending adequate healing of stump. (6) Erythropoietin deficiency anemia: Code(s): D63.1 - Anemia in chronic kidney disease Status: Acute Assessment and Plan: Patient is anemic secondary to ESRD. Since admission, Hgb has ranged from 7.7- 8.5. Today, Hgb is low at 7.2 and Hct 23.5. Patient is asymptomatic and vitals are stable. * Will continue to monitor H&H * Continue Epogen * Recommend repeat H&H outpatient in 1 week with results to PCP (7) Peripheral vascular disease: Code(s): I73.9 - Peripheral vascular disease, unspecified Status: Acute Assessment and Plan: Underwent stent placement to left popliteal artery by Dr. Sorto at [facility]. * Continue aspirin * Patient scheduled for follow up with Dr. Sorto on 12/31/19 Subjective Date/time seen: 12/25/19 13:23 Interval history: Date of service: 12/25/2019 Mr. Perea reports he is feeling well today. He has no concerns at this time. He denies shortness of breath and is comfortable now on room air. He is anxious for discharge and to return home. He denies cough, chest pain, abdominal pain, N/V, dizziness,
--- NOTE | 2019-12-25 13:23 | PM.IMPN ---
Progress Note: A&P Assessment and Plan (1) Shortness of breath: Code(s): R06.02 - Shortness of breath Status: Acute Assessment and Plan: Patient became short of breath on 12/24/19 and began requiring 1 L O2. There is no evidence of hypoxia per chart review, but patient reports he had dropped to approximately 70%. He was weaned from O2 and is maintaining adequate oxygen saturation on room air. He no longer endorses SOB. CXR reveals no acute cardiopulmonary findings Pulmonary perfusion scan revealed normal lung perfusion EKG with normal sinus rhythm Apnea link perfomed on 12/23 overnight with no episodes of apnea Home O2 trial performed and patient will not require oxygen following discharge Patient should follow up with primary care provider in 1-2 weeks to assess respiratory status (2) End stage renal disease: Code(s): N18.6 - End stage renal disease Status: Acute Assessment and Plan: Patient has a history of ESRD with renal osteodystrophy and associated anemia. Nephrology is managing Continue dialysis on //Mon (3) Hypertension: Code(s): I10 - Essential (primary) hypertension Status: Acute Assessment and Plan: Blood pressures were reviewed and appear to be mostly well controlled but does fluctuate. BP evaluated today and stable at 150/64. Continue amlodipine, carvedilol, lisinopril, and hydralazine Continue to monitor blood pressure (4) Uncontrolled type 2 diabetes mellitus with peripheral neuropathy: Code(s): E11.42 - Type 2 diabetes mellitus with diabetic polyneuropathy; E11.65 - Type 2 diabetes mellitus with hyperglycemia Status: Acute Assessment and Plan: Blood sugars were reviewed and appear to be reasonably well controlled with few episodes of hypoglycemia. A1c on 12/07/19 was 9.7. Continue accuchecks ACHS, SSI, and hypoglycemia protocol Continue lantus 10 U HS Continue diabetic diet Continue to monitor blood sugar (5) History of left below knee amputation: Code(s): Z89.512 - Acquired absence of left leg below knee Status: Acute Assessment and Plan: Patient underwent left BKA on 12/03/[address] Josue at [facility] with placement of wound vac which was removed 12/09/19. He will require follow up in 3 weeks for staple removal. Prosthetics consultation will be arranged pending adequate healing of stump. (6) Erythropoietin deficiency anemia: Code(s): D63.1 - Anemia in chronic kidney disease Status: Acute Assessment and Plan: Patient is anemic secondary to ESRD. Since admission, Hgb has ranged from 7.7-8.5. Today, Hgb is low at 7.2 and Hct 23.5. Patient is asymptomatic and vitals are stable. Will continue to monitor H&H Continue Epogen Recommend repeat H&H outpatient in 1 week with results to PCP (7) Peripheral vascular disease: Code(s): I73.9 - Peripheral vascular disease, unspecified Status: Acute Assessment and Plan: Underwent stent placement to left popliteal artery by Dr. Sorto at [facility]. Continue aspirin Patient scheduled for follow up with Dr. Sorto on 12/31/19 Subjective Date/time seen: 12/25/19 13:23 Interval history: Date of service: 12/25/2019 Mr. Perea reports he is feeling well today. He has no concerns at this time. He denies shortness of breath and is comfortable now on room air. He is anxious for discharge and to return home. He denies cough, chest pain, abdominal pain, N/V, dizziness, lightheadedness, fever or chills. He is urinating without difficulty and having regular bowel movements. He slept well last night. His appetite is good. Review of Systems Review of Systems: Narrative: A 12 point review of systems was reviewed with pertinent positives and negatives as per HPI. Exam Narrative: Exam Narrative: Mr. Perea is examined alone today. He is a well nourished, obese 49 year old male who is lying supine i
--- NOTE | 2019-12-25 13:58 | PCRCNOTE ---
HOME O2 EVAL DONE, NO HOME O2 NEEDED. PT DID NOT AMBULATE, SAT UP IN BED, SHIFTED BODY WEIGHT TO EDGE OF BED AND BACK. SATS INCREASED WITH ACTIVITY
[2019-12-25 14:00] VITALS: BP 133/51; PULSE 72; RESP 18; TEMP 36.6; O2SAT 98
--- NOTE | 2019-12-25 20:39 | PC.NURSE ---
removed butterfly IV fromrt forearm prior to pt leaving today. dsg applied and pressure.
--- NOTE | 2019-12-28 01:46 | DS_ITS ---
DATE OF DISCHARGE: 12/25/2019 DISCHARGE ACUTE REHABILITATION DIAGNOSIS: Amputation of lower extremity with etiological diagnosis of severe peripheral vascular disease with osteomyelitis. DISCHARGE ACTIVE COMORBID CONDITIONS: 1. Diabetes mellitus. 2. Peripheral vascular disease. 3. Hypertension. 4. End-stage renal disease. REASON FOR ADMISSION: A 49-year-old presented to Dr. Bright office on 11/25/2019 for further evaluation of circulatory problem and extent of the infection to receive the future IV antibiotic. His foot ulcer was being treated with oral antibiotic, but ulceration was rapidly deteriorating and he was developing gangrenous tissues. Dr. Bright performed a debridement in the office, recommended the patient to go to the emergency room where radiological investigation documented osteomyelitis of base of the left fifth metatarsal bone for which he was placed on cefepime and clindamycin. CTA revealed aorta with bilateral iliofemoral runoff. He had previous amputation of all the toes on the left foot in 2011 and second and third toe of the right foot in 2012. 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 Infectious Disease suggested the antibiotics to ceftriaxone and added the metronidazole. Sap Abap Developer recommended peripheral vascular consultation for staging of the amputation as well as I and D with the recommendation made by General Surgery for possible distal [id number] amputation. Wet-to-dry Betadine dressing were initiated. Drywaller was consulted for the patient to be on hemodialysis on Monday, , and Monday, and was managing hemodialysis care. Cardiology would also consult a peripheral angiography to attempt to restore the better blood flow to the left foot. Angioplasty was performed on 11/27/2019, but on 11/27, risk developer recommended I and D of the left foot. At the end of the procedure, Dr. Batista determined that it was highly unlikely healing would occur, so he packed the area and contacted Dr. Josue to schedule a below-knee or amputation under the anesthesia. Surgery was done, left [id number] amputation on 11/14/2019 with a postop VAC. He developed severe pain, anemia, hypertension, hyperglycemia, hyperkalemia, and hyponatremia, and he was maintained nonweightbearing to left lower extremity and Prevena wound VAC to the left lower extremity, which was to be removed on 12/09/2019, and he was to follow up in 3 weeks for staple removal. If his stump healed at that time, they will arrange for prosthetic consultation, stump spirits model. On 12/02/2019, he underwent a CT angiogram and stent placement of left popliteal artery with Dr. Sotro and the patient was to continue aspirin. He required 5-7 days of oral antibiotic. He was not to be placed on subcutaneous anticoagulation if he has followup appointment with Dr. Sorto and he had not traveled outside and had not been in contact with any person who was exposed to the COVID patient. LEVEL OF FUNCTION AT THE TIME OF ADMISSION: The patient required setup for eating, supervision for oral hygiene. He refused toileting. On evaluation, he required partial assistance for bathing and upper body dressing. He required substantial assistance for lower body dressing, partial assistance for footwear, supervision for rolling in bed, partial assistance for sit to lying, supervision for lying to bed, substantial assistance for sit to stand, chair-chair transfer. He was dependent for toilet transfer. He was unable to car transfer, walking 10 feet, 50 feet with 2 turns, walking 150 feet, walking 10 feet on uneven surfaces, curb or step, 4 steps, 12 steps, picking up object and he required partial assistance for the wheelchair for 50 feet. ANTICIPATED REHAB GOALS: Anticipated rehab goals at
== END 2019-12-25 14:30 | disposition home health service (06) | DRG 559 ==
PROVIDERS: Internal Medicine Nephrology; Physician Assistant; Admitting Provider Psychiatry & Neurology Neurology; Visit Provider Psychiatry & Neurology Neurology
DX: Z47.81 Encounter for orthopedic aftercare following surgical amputation (principal); N18.6 End stage renal disease; E87.1 Hypo-osmolality and hyponatremia; I12.0 Hypertensive chronic kidney disease with stage 5 chronic kidney disease or end stage renal disease; Z89.512 Acquired absence of left leg below knee; Z99.2 Dependence on renal dialysis; D63.1 Anemia in chronic kidney disease; E11.51 Type 2 diabetes mellitus with diabetic peripheral angiopathy without gangrene; E11.42 Type 2 diabetes mellitus with diabetic polyneuropathy; E11.319 Type 2 diabetes mellitus with unspecified diabetic retinopathy without macular edema; E11.22 Type 2 diabetes mellitus with diabetic chronic kidney disease; E11.65 Type 2 diabetes mellitus with hyperglycemia; E78.5 Hyperlipidemia, unspecified; E87.5 Hyperkalemia; N25.0 Renal osteodystrophy; R06.02 Shortness of breath; R42 Dizziness and giddiness; Z89.421 Acquired absence of other right toe(s); Z79.4 Long term (current) use of insulin; Z86.73 Personal history of transient ischemic attack (TIA), and cerebral infarction without residual deficits
CPT/HCPCS: 36415; 71045; 78580; 80048; 80053; 80069; 83036; 83540; 83550; 85025; 85027; 85046; 86706; 87340; 93005; 94618; 94762; 97110; 97116; 97162; 97166; 97167; 97530; 97535; 97542; A9270; A9540; G0257; J1644; J1815; J7030; Q4081